=== PATIENT | male | born 1970 | race Caucasian/White ===

== ENCOUNTER 2017-05-15 15:47 | Inpatient (IN) | payer MEDICARE, MEDICAID ==
[~2017-05-15] VITALS: Ht 175.3 cm; Wt 150.6 kg
[~2017-05-15 15:47] MED LIST: ACET250T3 PO; BRIM5DRO RIGHTEYE; CANA300T PO; GABA-531 PO; METF10002 PO; PRED5DRO7 RIGHTEYE
[2017-05-15] MEDS ORDERED: IPRATROPIUM/ALBUTEROL 0.5-3(2.5)MG/3ML NEB HHN ONE (17:30)
[2017-05-15 17:35] LABS: BASOPHILS % 0.9 % (0.0-2.0); EOSINOPHILS % 1.5 % (0.0-5.0); HEMATOCRIT. 42.6 % (42.0-52.0); HEMOGLOBIN. 14.6 g/dL (14.0-18.0); LYMPHOCYTES % 25.6 % (20.0-50.0); MEAN CORPUSCULAR HEMOGLOBIN 29.9 pg (28.0-32.0); MEAN CORPUSCULAR VOLUME 87.3 fL (80.0-94.0); MEAN PLATELET VOLUME 9.6 fl (7.4-10.4); MONOCYTES % 4.7 % (2.0-8.0); NEUTROPHILS % 67.3 % (40.0-76.0); PLATELET 303 x1000/uL (130-400); RED BLOOD CELL COUNT 4.88 mill/uL (4.7-6.1); RED CELL DISTRIBUTION WIDTH 13.4 % (11.6-14.6)
[2017-05-15 17:37] LABS: CHLORIDE 106 mEq/L (98-107)
[2017-05-15 17:42] LABS: CARBON DIOXIDE 23 mEq/L (21-32)
[2017-05-15 17:46] LABS: PARTIAL THROMBOPLASTIN TIME 26.5 sec (23.4-31.0); PROTHROMBIN TIME 10.1 sec (9.4-11.6)
[2017-05-15 17:49] LABS: TROPONIN I < 0.02 ng/mL (0.00-0.04)
[2017-05-15 20:00] VITALS: BP 148/95
[2017-05-15 22:10] VITALS: BP 143/94
[2017-05-15] MEDS ORDERED: ENOXAPARIN 40MG/0.4ML SYR SUBCUT SCH (23:00)
[2017-05-15] MEDS ORDERED: ACETAMINOPHEN 325MG TABLET PO PRN (23:00)
[2017-05-15] MEDS ORDERED: LACTULOSE 20G/30ML UDC PO PRN (23:00)
[2017-05-15] MEDS ORDERED: DEXTROSE 50% WATER 50ML SYRINGE IV PRN (23:00)
[2017-05-15] MEDS ORDERED: IPRATROPIUM/ALBUTEROL 0.5-3(2.5)MG/3ML NEB INH PRN (23:00)
[2017-05-15] MEDS ORDERED: HYDROCODONE/APAP 7.5/325MG 1 TAB TABLET PO PRN (23:10)
[2017-05-15] MEDS ORDERED: DIFL5DRO RIGHTEYE (23:48)
[2017-05-15] MEDS ORDERED: MULT-1146 PO (23:48)
[2017-05-15] MEDS ORDERED: CHOL100044 PO (23:48)
[2017-05-15] MEDS ORDERED: DORZ10DR7 RIGHTEYE (23:48)
[2017-05-15] MEDS ORDERED: HYPR10GE3 RIGHTEYE (23:48)
[2017-05-15] MEDS ORDERED: HYDR-522 PO (23:48)
[2017-05-15] MEDS ORDERED: LATA2.5D2 RIGHTEYE (23:48)
[2017-05-15] MEDS ORDERED: FENO160T9 PO (23:48)
[2017-05-15] MEDS ORDERED: BRIM15DR2 RIGHTEYE (23:48)
[2017-05-15] MEDS ORDERED: SODI15DR6 RIGHTEYE (23:48)
[2017-05-15] MEDS ORDERED: [UNRECOGNIZED DRUG - OTHER] SUBCUT (23:48)
[2017-05-16] VITALS (7 sets, daily range): BP systolic 118–142; BP diastolic 68–90
[2017-05-16] MEDS ORDERED: INSULIN DETEMIR UD 100 UNITS/ML SYR SUBCUT SCH
[2017-05-16] MEDS: POTASSIUM CHLORIDE 20MEQ TABLET SR PO SCH ×2 (00:02→08:22)
[2017-05-16] MEDS: FUROSEMIDE 40MG/4ML VIAL IVP SCH ×3 (00:02→11:52)
[2017-05-16] MEDS: INSULIN LISPRO 100 UNITS/ML SUBCUT SCH ×5 (00:04→22:15)
[2017-05-16] MEDS: SODIUM CHLORIDE 0.9% INJ 3ML FLUSH IVF SCH ×3 (05:58→20:59)
[2017-05-16] MEDS: BLOOD SUGAR DIAGNOSTIC STRIP TEST SCH ×4 (05:58→21:01)
[2017-05-16] MEDS ORDERED: INSULIN LISPRO 100 UNITS/ML SUBCUT SCH (08:10)
[2017-05-16] MEDS: SODIUM CHLORIDE 2% RIGHTEYE SCH ×3 (08:19→20:59)
[2017-05-16] MEDS: ACETAZOLAMIDE 250MG TABLET PO SCH ×2 (08:23→17:19)
[2017-05-16] MEDS: METFORMIN HCL 500MG TABLET PO SCH ×2 (08:23→17:19)
[2017-05-16] MEDS: ENOXAPARIN 40MG/0.4ML SYR SUBCUT SCH ×2 (08:23→20:59)
[2017-05-16] MEDS: GABAPENTIN 300MG CAPSULE PO SCH ×3 (08:28→17:19)
[2017-05-16] MEDS: DORZOLAMIDE 2% OPHTH 10 ML BOTTLE RIGHTEYE SCH ×2 (08:29→17:18)
[2017-05-16] MEDS: POLYVINYL ALCOHOL OPHTH DROPS 15ML RIGHTEYE SCH (08:29)
[2017-05-16] MEDS ORDERED: BRIMONIDINE 0.2% OPHTH DROPS 5ML RIGHTEYE SCH (09:00)
[2017-05-16] MEDS ORDERED: BRIMONIDINE TARTRATE RIGHTEYE SCH (09:00)
[2017-05-16] MEDS ORDERED: HYPROMELLOSE RIGHTEYE SCH (09:00)
[2017-05-16] MEDS ORDERED: PREDNISOLONE ACETATE 1% OPHTH DROPS 1ML RIGHTEYE SCH (09:00)
[2017-05-16] MEDS ORDERED: MEDICATION NOT ON FORMULARY EA (Difluprednate (Durezol) 1 DROP) RIGHTEYE SCH ×2 (09:00)
[2017-05-16] MEDS ORDERED: GABAPENTIN 300MG CAPSULE PO SCH (09:00)
[2017-05-16] MEDS ORDERED: MEDICATION NOT ON FORMULARY EA (Metformin Hcl 500 MG) PO SCH (09:00)
[2017-05-16] MEDS ORDERED: MEDICATION NOT ON FORMULARY EA (Brimonidine Tartrate (Alphagan P) 1 DROP) RIGHTEYE SCH (09:00)
[2017-05-16] MEDS ORDERED: PNEUMOCOCCAL 23-VAL P-SAC VAC 0.5 ML IM ONE (10:00)
[2017-05-16 10:57] LABS: BASOPHILS % 0.7 % (0.0-2.0); EOSINOPHILS % 1.4 % (0.0-5.0); HEMATOCRIT. 43.6 % (42.0-52.0); HEMOGLOBIN. 14.5 g/dL (14.0-18.0); LYMPHOCYTES % 21.3 % (20.0-50.0); MEAN CORPUSCULAR HEMOGLOBIN 29.2 pg (28.0-32.0); MEAN CORPUSCULAR VOLUME 87.6 fL (80.0-94.0); MONOCYTES % 5.2 % (2.0-8.0); NEUTROPHILS % 71.4 % (40.0-76.0); PLATELET 302 x1000/uL (130-400); RED BLOOD CELL COUNT 4.98 mill/uL (4.7-6.1); RED CELL DISTRIBUTION WIDTH 13.5 % (11.6-14.6)
[2017-05-16 11:20] LABS: CARBON DIOXIDE 27 mEq/L (21-32); CHLORIDE 102 mEq/L (98-107)
[2017-05-16] MEDS: INSULIN DETEMIR UD 100 UNITS/ML SYR SUBCUT SCH ×2 (11:48→22:15)
[2017-05-16] MEDS: BRIMONIDINE 0.2% OPHTH DROPS 5ML RIGHTEYE SCH ×2 (12:52→17:18)
[2017-05-16] MEDS: LATANOPROST 0.005% OPHTH DROPS 2.5ML RIGHTEYE SCH (17:00)
[2017-05-16] MEDS: LISINOPRIL 10MG TABLET PO SCH (20:58)
[2017-05-17] VITALS: BP 112/70
[2017-05-17 01:42] LABS: CLARITY URINE CLOUDY (CLEAR); COLOR URINE YELLOW (YELLOW); GLUCOSE URINE 2+ (NEGATIVE); KETONES URINE NEGATIVE (NEGATIVE); LEUKOCYTE ESTERASE URINE NEGATIVE (NEGATIVE); NITRITE URINE NEGATIVE (NEGATIVE); OCCULT BLOOD URINE NEGATIVE (NEGATIVE); PH URINE 7.5 (4.5-8.0); PROTEIN URINE NEGATIVE (NEGATIVE); SPECIFIC GRAVITY URINE 1.015 (1.005-1.030); UROBILINOGEN URINE 0.2 E.U./dL (0.2-1.0)
[2017-05-17 01:52] LABS: *AMPHETAMINES SCREEN URINE NEGATIVE (NEGATIVE); *BARBITURATES SCREEN URINE NEGATIVE (NEGATIVE); *BENZODIAZEPINES SCREEN URINE NEGATIVE (NEGATIVE); *COCAINE SCREEN URINE NEGATIVE (NEGATIVE); CANNABINOID URINE SCREEN NEGATIVE (NEGATIVE); METHADONE URINE SCREEN NEGATIVE (NEGATIVE); OPIATES URINE SCREEN NEGATIVE (NEGATIVE); PHENCYCLIDINE URINE SCREEN NEGATIVE (NEGATIVE)
[2017-05-17 04:00] VITALS: BP 112/61
[2017-05-17] MEDS: BLOOD SUGAR DIAGNOSTIC STRIP TEST SCH ×4 (06:02→21:23)
[2017-05-17] MEDS: SODIUM CHLORIDE 2% RIGHTEYE SCH ×3 (06:02→21:22)
[2017-05-17] MEDS: SODIUM CHLORIDE 0.9% INJ 3ML FLUSH IVF SCH ×3 (06:02→21:22)
[2017-05-17 06:50] LABS: BASOPHILS % 0.7 % (0.0-2.0); EOSINOPHILS % 1.7 % (0.0-5.0); HEMATOCRIT. 44.4 % (42.0-52.0); HEMOGLOBIN. 14.9 g/dL (14.0-18.0); LYMPHOCYTES % 20.6 % (20.0-50.0); MEAN CORPUSCULAR HEMOGLOBIN 29.3 pg (28.0-32.0); MEAN CORPUSCULAR VOLUME 87.6 fL (80.0-94.0); MEAN PLATELET VOLUME 9.3 fl (7.4-10.4); MONOCYTES % 6.2 % (2.0-8.0); NEUTROPHILS % 70.8 % (40.0-76.0); PLATELET 330 x1000/uL (130-400); RED BLOOD CELL COUNT 5.07 mill/uL (4.7-6.1); RED CELL DISTRIBUTION WIDTH 13.4 % (11.6-14.6)
[2017-05-17 08:00] VITALS: BP 124/75
[2017-05-17 08:15] LABS: CARBON DIOXIDE 27 mEq/L (21-32); CHLORIDE 102 mEq/L (98-107); HDL CHOLESTEROL 23 mg/dL (40-59); LDL CHOLESTEROL 101 mg/dL (5-100)
[2017-05-17] MEDS: FUROSEMIDE 40MG/4ML VIAL IVP SCH (08:30)
[2017-05-17] MEDS: GABAPENTIN 300MG CAPSULE PO SCH ×3 (08:31→17:53)
[2017-05-17] MEDS: LISINOPRIL 10MG TABLET PO SCH ×2 (08:31→21:00)
[2017-05-17] MEDS: METFORMIN HCL 500MG TABLET PO SCH ×2 (08:31→17:53)
[2017-05-17] MEDS: ACETAZOLAMIDE 250MG TABLET PO SCH ×2 (08:32→17:54)
[2017-05-17] MEDS: INSULIN LISPRO 100 UNITS/ML SUBCUT SCH ×4 (08:33→21:34)
[2017-05-17] MEDS: ENOXAPARIN 40MG/0.4ML SYR SUBCUT SCH ×2 (08:34→21:24)
[2017-05-17] MEDS: POLYVINYL ALCOHOL OPHTH DROPS 15ML RIGHTEYE SCH (08:41)
[2017-05-17] MEDS: BRIMONIDINE 0.2% OPHTH DROPS 5ML RIGHTEYE SCH ×2 (08:42→17:00)
[2017-05-17] MEDS: DORZOLAMIDE 2% OPHTH 10 ML BOTTLE RIGHTEYE SCH ×2 (08:42→17:58)
[2017-05-17] MEDS ORDERED: POTASSIUM CHLORIDE 20MEQ TABLET SR PO SCH (09:00)
[2017-05-17] MEDS ORDERED: POTASSIUM CHLORIDE 20MEQ TABLET SR PO NR (10:30)
[2017-05-17] MEDS: INSULIN DETEMIR UD 100 UNITS/ML SYR SUBCUT SCH ×2 (11:24→22:12)
[2017-05-17 12:00] VITALS: BP 158/80
[2017-05-17 16:00] VITALS: BP 117/74
[2017-05-17] MEDS ORDERED: FUROSEMIDE 40MG/4ML VIAL IVP SCH (17:00)
[2017-05-17] MEDS: POTASSIUM CHLORIDE 20MEQ TABLET SR PO SCH (17:54)
[2017-05-17] MEDS: LATANOPROST 0.005% OPHTH DROPS 2.5ML RIGHTEYE SCH (17:58)
[2017-05-17 20:00] VITALS: BP 103/79
[2017-05-17] MEDS: ATORVASTATIN CALCIUM 20MG TABLET PO SCH (21:22)
[2017-05-18] VITALS: BP 124/78
[2017-05-18 04:00] VITALS: BP 97/63
[2017-05-18] MEDS: SODIUM CHLORIDE 0.9% INJ 3ML FLUSH IVF SCH ×3 (05:35→20:48)
[2017-05-18] MEDS: SODIUM CHLORIDE 2% RIGHTEYE SCH ×3 (05:35→20:51)
[2017-05-18] MEDS: BLOOD SUGAR DIAGNOSTIC STRIP TEST SCH ×4 (06:51→20:39)
[2017-05-18 08:00] VITALS: BP 105/61
[2017-05-18] MEDS: METFORMIN HCL 500MG TABLET PO SCH ×2 (08:45→17:42)
[2017-05-18] MEDS: POTASSIUM CHLORIDE 20MEQ TABLET SR PO SCH ×2 (08:45→17:43)
[2017-05-18] MEDS: ENOXAPARIN 40MG/0.4ML SYR SUBCUT SCH ×2 (08:46→20:47)
[2017-05-18] MEDS: BRIMONIDINE 0.2% OPHTH DROPS 5ML RIGHTEYE SCH ×2 (08:47→17:43)
[2017-05-18] MEDS: POLYVINYL ALCOHOL OPHTH DROPS 15ML RIGHTEYE SCH (08:47)
[2017-05-18] MEDS: DORZOLAMIDE 2% OPHTH 10 ML BOTTLE RIGHTEYE SCH ×2 (08:47→17:43)
[2017-05-18 08:53] LABS: CARBON DIOXIDE 25 mEq/L (21-32); CHLORIDE 104 mEq/L (98-107); TROPONIN I < 0.02 ng/mL (0.00-0.04)
[2017-05-18] MEDS: GABAPENTIN 300MG CAPSULE PO SCH ×3 (08:54→17:48)
[2017-05-18] MEDS: ACETAZOLAMIDE 250MG TABLET PO SCH ×2 (08:54→17:43)
[2017-05-18] MEDS: INSULIN LISPRO 100 UNITS/ML SUBCUT SCH ×4 (08:55→20:48)
[2017-05-18] MEDS: INSULIN DETEMIR UD 100 UNITS/ML SYR SUBCUT SCH ×2 (10:23→21:23)
[2017-05-18] MEDS: LISINOPRIL 10MG TABLET PO SCH ×2 (11:10→20:39)
[2017-05-18] MEDS: FUROSEMIDE 40MG TABLET PO SCH ×2 (11:10→20:48)
[2017-05-18 12:00] VITALS: BP 122/70
[2017-05-18 16:00] VITALS: BP 102/55
[2017-05-18] MEDS: LATANOPROST 0.005% OPHTH DROPS 2.5ML RIGHTEYE SCH (17:43)
[2017-05-18 20:00] VITALS: BP 106/72
[2017-05-18] MEDS: ATORVASTATIN CALCIUM 20MG TABLET PO SCH (20:48)
[2017-05-19] VITALS: BP 109/68
[2017-05-19 04:00] VITALS: BP 104/64
[2017-05-19] MEDS: SODIUM CHLORIDE 0.9% INJ 3ML FLUSH IVF SCH (05:52)
[2017-05-19] MEDS: FUROSEMIDE 40MG TABLET PO SCH (05:53)
[2017-05-19] MEDS: BLOOD SUGAR DIAGNOSTIC STRIP TEST SCH ×2 (05:53→12:00)
[2017-05-19] MEDS: SODIUM CHLORIDE 2% RIGHTEYE SCH (05:53)
[2017-05-19 06:36] LABS: BASOPHILS % 0.8 % (0.0-2.0); EOSINOPHILS % 1.8 % (0.0-5.0); HEMATOCRIT. 42.4 % (42.0-52.0); HEMOGLOBIN. 14.1 g/dL (14.0-18.0); LYMPHOCYTES % 27.2 % (20.0-50.0); MEAN CORPUSCULAR HEMOGLOBIN 29.5 pg (28.0-32.0); MEAN CORPUSCULAR VOLUME 88.5 fL (80.0-94.0); MEAN PLATELET VOLUME 9.2 fl (7.4-10.4); MONOCYTES % 5.8 % (2.0-8.0); NEUTROPHILS % 64.4 % (40.0-76.0); PLATELET 290 x1000/uL (130-400); RED BLOOD CELL COUNT 4.79 mill/uL (4.7-6.1); RED CELL DISTRIBUTION WIDTH 13.6 % (11.6-14.6)
[2017-05-19 07:04] LABS: CARBON DIOXIDE 31 mEq/L (21-32); CHLORIDE 103 mEq/L (98-107)
[2017-05-19 08:00] VITALS: BP 112/64
[2017-05-19] MEDS: POLYVINYL ALCOHOL OPHTH DROPS 15ML RIGHTEYE SCH (08:08)
[2017-05-19] MEDS: DORZOLAMIDE 2% OPHTH 10 ML BOTTLE RIGHTEYE SCH (08:08)
[2017-05-19] MEDS: LISINOPRIL 10MG TABLET PO SCH (08:09)
[2017-05-19] MEDS: GABAPENTIN 300MG CAPSULE PO SCH (08:09)
[2017-05-19] MEDS: POTASSIUM CHLORIDE 20MEQ TABLET SR PO SCH (08:09)
[2017-05-19] MEDS: METFORMIN HCL 500MG TABLET PO SCH (08:09)
[2017-05-19] MEDS: ACETAZOLAMIDE 250MG TABLET PO SCH (08:10)
[2017-05-19] MEDS: ENOXAPARIN 40MG/0.4ML SYR SUBCUT SCH (08:10)
[2017-05-19] MEDS: INSULIN LISPRO 100 UNITS/ML SUBCUT SCH (08:11)
[2017-05-19] MEDS: BRIMONIDINE 0.2% OPHTH DROPS 5ML RIGHTEYE SCH (08:14)
[2017-05-19 10:31] VITALS: BP 109/67
[2017-05-19] MEDS: INSULIN DETEMIR UD 100 UNITS/ML SYR SUBCUT SCH (10:40)
[2017-05-19 12:00] VITALS: BP 111/60
[2017-05-19] MEDS ORDERED: ATORVASTATIN CALCIUM 20MG TABLET PO SCH (21:00)
== END 2017-05-19 12:34 | disposition home or self-care (01) | DRG 292 ==
LOC: ER 19:30 → 7WST 19:31 → EDBEDREQ 19:51 → ENRESERV 20:51 → ER 21:36 → 7WST 05-16 00:22
PROVIDERS: ADMIT Internal Medicine; ATTEND Internal Medicine
DX: I11.0 Hypertensive heart disease with heart failure (principal); Z68.42 Body mass index [BMI] 45.0-49.9, adult; E11.42 Type 2 diabetes mellitus with diabetic polyneuropathy; H33.20 Serous retinal detachment, unspecified eye; I50.33 Acute on chronic diastolic (congestive) heart failure; E11.65 Type 2 diabetes mellitus with hyperglycemia; E66.01 Morbid (severe) obesity due to excess calories; F32.9 Major depressive disorder, single episode, unspecified; H40.9 Unspecified glaucoma; M54.9 Dorsalgia, unspecified; G47.33 Obstructive sleep apnea (adult) (pediatric); E87.6 Hypokalemia; R00.1 Bradycardia, unspecified; D72.829 Elevated white blood cell count, unspecified; G89.29 Other chronic pain; J44.9 Chronic obstructive pulmonary disease, unspecified; M17.9 Osteoarthritis of knee, unspecified; Z79.4 Long term (current) use of insulin; Z79.899 Other long term (current) drug therapy; Z82.49 Family history of ischemic heart disease and other diseases of the circulatory system; Z83.3 Family history of diabetes mellitus; Z79.84 Long term (current) use of oral hypoglycemic drugs
CPT/HCPCS: 36415; 71010; 80048; 80053; 80061; 80305; 81001; 82962; 83036; 83605; 83690; 83735; 83880; 84443; 84484; 85025; 85379; 85610; 85730; 87040; 90732; 93005; 93306; 93970; 94640; 99285; J1650; J1815; J1940; J7620

== ENCOUNTER 2020-08-04 16:52 | Inpatient (IN) | payer MEDICARE, MEDICAID ==
[~2020-08-04] VITALS: Ht 167.6 cm; Wt 123.8 kg
[~2020-08-04 16:52] MED LIST changes: +BRIM15DR2 RIGHTEYE; -BRIM5DRO RIGHTEYE; +CHOL100044 PO; +DIFL5DRO RIGHTEYE; +DORZ10DR8 RIGHTEYE; +FENO160T9 PO; -GABA-531 PO; +GABA-532 PO; +HYDR-522 PO; +HYPR10GE3 RIGHTEYE; +LATA2.5D14 RIGHTEYE; +METF-416 PO; -METF10002 PO; +MULT-1146 PO; -PRED5DRO7 RIGHTEYE; +SODI15DR6 RIGHTEYE; +[UNRECOGNIZED DRUG - OTHER] SUBCUT
[2020-08-04] MEDS ORDERED: ACETAMINOPHEN 325MG TABLET PO STA (17:40)
[2020-08-04] MEDS ORDERED: DEXAMETHASONE 10 MG/ML VIAL IV ONE (17:45)
[2020-08-04] MEDS ORDERED: SODIUM CHLORIDE 0.9% 1000ML BAG (SEPSIS BOLUS) IV ONE (17:45)
[2020-08-04] MEDS ORDERED: CEFTRIAXONE 1 G PREMIX 50 ML IV ONE (17:45)
[2020-08-04] MEDS ORDERED: AZITHROMYCIN 500 MG in DEXT 5% WATER 250 ML IV ONE (17:45)
[2020-08-04 18:14] LABS: BASOPHILS % 0.2 % (0.0-2.0); HEMATOCRIT. 45.2 % (42.0-52.0); HEMOGLOBIN. 15.1 g/dL (14.0-18.0); LYMPHOCYTES % 9.4 % (20.0-50.0); MEAN CORPUSCULAR HEMOGLOBIN 29.3 pg (28.0-32.0); MEAN CORPUSCULAR VOLUME 87.9 fL (80.0-94.0); MEAN PLATELET VOLUME 8.3 fl (7.4-10.4); MONOCYTES % 8.4 % (2.0-8.0); PLATELET 288 x1000/uL (130-400); RED BLOOD CELL COUNT 5.15 mill/uL (4.7-6.1); RED CELL DISTRIBUTION WIDTH 13.3 % (11.6-14.6)
[2020-08-04 18:16] LABS: CHLORIDE 98 mEq/L (98-107)
[2020-08-04 18:25] LABS: CREATINE KINASE 315 IU/L (39-308)
[2020-08-04 18:49] LABS: D-DIMER 0.67 mg/L FEU (<0.50); INR 1.1; PROTHROMBIN TIME 11.2 sec (9.6-11.0)
[2020-08-04 18:53] LABS: FIBRINOGEN > 900 mg/dL (200-400)
[2020-08-04] MEDS ORDERED: ALBUTEROL 6.7GM HFA INHALER ORI PRN (20:15)
[2020-08-04] MEDS ORDERED: CLONIDINE 0.1MG TABLET PO PRN (20:15)
[2020-08-04] MEDS ORDERED: NITROGLYCERIN 0.4MG TABLET SL SL PRN (20:15)
[2020-08-04] MEDS ORDERED: ZOLPIDEM TARTRATE 5MG TABLET PO PRN (20:15)
[2020-08-04] MEDS ORDERED: ONDANSETRON HCL 4MG/2ML INJ IV PRN (20:15)
[2020-08-04] MEDS ORDERED: TRAMADOL 50MG TABLET PO PRN (20:15)
[2020-08-04] MEDS ORDERED: ENOXAPARIN 40MG/0.4ML SYR SUBCUT SCH (20:15)
[2020-08-04] MEDS ORDERED: MAGNESIUM/ALUMINUM HYDROXIDE/SIMETHICONE 30ML UDC PO PRN (20:15)
[2020-08-04] MEDS ORDERED: KETOROLAC 15MG/ML VIAL IV PRN (20:15)
[2020-08-04] MEDS: ENOXAPARIN 30MG/0.3ML SYR SUBCUT SCH (21:00)
[2020-08-04] MEDS: BLOOD SUGAR DIAGNOSTIC STRIP TEST SCH (21:00)
[2020-08-04] MEDS: FAMOTIDINE 20MG TABLET PO SCH (21:00)
[2020-08-04] MEDS: INSULIN LISPRO 100 UNITS/ML SUBCUT SCH (21:00)
[2020-08-04] MEDS: GUAIFENESIN/DM 600MG/30MG ER TAB 12HR PO SCH (21:00)
[2020-08-04] MEDS: ASCORBIC ACID 500 MG TABLET PO SCH (21:00)
[2020-08-04] MEDS: INSULIN GLARGINE UD 100 UNITS/ML SYR SUBCUT SCH (22:00)
[2020-08-04] MEDS: GABAPENTIN 300MG CAPSULE PO SCH (22:03)
[2020-08-04 23:28] LABS: CREATINE KINASE 296 IU/L (39-308)
[2020-08-04 23:29] LABS: CREATINE KINASE MB FRACTION 1.6 ng/mL (0.5-3.6)
[2020-08-05 04:59] LABS: CHLORIDE 106 mEq/L (98-107)
[2020-08-05 05:00] LABS: BASOPHILS % 0.1 % (0.0-2.0); HEMATOCRIT. 42.3 % (42.0-52.0); HEMOGLOBIN. 14.7 g/dL (14.0-18.0); LYMPHOCYTES % 15.5 % (20.0-50.0); MEAN CORPUSCULAR HEMOGLOBIN 30.1 pg (28.0-32.0); MEAN PLATELET VOLUME 8.4 fl (7.4-10.4); MONOCYTES % 7.8 % (2.0-8.0); NEUTROPHILS % 76.6 % (40.0-76.0); PLATELET 257 x1000/uL (130-400); RED BLOOD CELL COUNT 4.87 mill/uL (4.7-6.1); RED CELL DISTRIBUTION WIDTH 13.1 % (11.6-14.6)
[2020-08-05 05:08] LABS: PHOSPHORUS 3.1 mg/dL (2.5-4.9)
[2020-08-05 05:09] LABS: CREATINE KINASE 251 IU/L (39-308)
[2020-08-05] MEDS: GABAPENTIN 300MG CAPSULE PO SCH ×3 (05:57→22:00)
[2020-08-05] MEDS: BLOOD SUGAR DIAGNOSTIC STRIP TEST SCH ×4 (05:57→21:26)
[2020-08-05] MEDS: ALBUTEROL 6.7GM HFA INHALER ORI SCH ×3 (07:12→21:30)
[2020-08-05] MEDS: DEXAMETHASONE 10 MG/ML VIAL IV SCH (09:13)
[2020-08-05] MEDS: INSULIN LISPRO 100 UNITS/ML SUBCUT SCH ×7 (09:13→21:26)
[2020-08-05] MEDS: GUAIFENESIN/DM 600MG/30MG ER TAB 12HR PO SCH ×2 (09:14→21:43)
[2020-08-05] MEDS: ZINC SULFATE 220 MG ( 50 ) CAPSULE PO SCH (09:15)
[2020-08-05] MEDS: ASCORBIC ACID 500 MG TABLET PO SCH ×2 (09:15→21:44)
[2020-08-05] MEDS: FAMOTIDINE 20MG TABLET PO SCH ×2 (09:15→21:43)
[2020-08-05] MEDS: ENOXAPARIN 30MG/0.3ML SYR SUBCUT SCH ×2 (09:16→22:19)
[2020-08-05] MEDS: ASPIRIN 325MG EC TABLET PO SCH (09:32)
[2020-08-05 14:49] LABS: BG BASE EXCESS -0.3 mmol/L (-2.0-2.0); BG DEOXYHEMOGLOBIN 3.1 % (0.0-5.0); BG FRACTION INSPIRED OXYGEN 99.9; BG HCO3 ACT 23.1 mmol/L (22.0-26.0); BG METHEMOGLOBIN 0.2 % (0.0-1.5); BG OXYGEN SATURATION 96.9 % (92.0-98.5); BG OXYHEMOGLOBIN 96.7 % (94.0-97.0); BG PCO2 34.7 mmHg (35.0-45.0); BG PH 7.442 (7.350-7.450); BG PO2 87.6 mmHg (75.0-100.0); BG SAMPLE SITE LEFT RADIAL; BG TOTAL HEMOGLOBIN 16.3 g/dL (12.0-18.0); BG VENT MODE MASK - NRB
[2020-08-05] MEDS: INSULIN GLARGINE UD 100 UNITS/ML SYR SUBCUT SCH ×2 (16:00→22:14)
[2020-08-05] MEDS ORDERED: POLY15DR31 EACHEYE (16:39)
[2020-08-05] MEDS ORDERED: LATA2.5D14 RIGHTEYE (16:39)
[2020-08-05] MEDS ORDERED: BRIM5DRO6 EACHEYE (16:39)
[2020-08-05] MEDS ORDERED: TIMO5DRO32 RIGHTEYE (16:39)
[2020-08-05] MEDS ORDERED: SODI15DR4 EACHEYE (16:39)
[2020-08-05] MEDS ORDERED: POLY15DR31 RIGHTEYE (16:48)
[2020-08-05] MEDS ORDERED: CEFTRIAXONE 1 G PREMIX 50 ML IV SCH (18:00)
[2020-08-05] MEDS ORDERED: AZITHROMYCIN 500 MG in DEXT 5% WATER 250 ML IV SCH (21:00)
[2020-08-05 23:00] VITALS: BP 139/90
[2020-08-06] VITALS: BP 146/90
[2020-08-06] MEDS: ALBUTEROL 6.7GM HFA INHALER ORI SCH ×4 (01:27→23:55)
[2020-08-06 04:00] VITALS: BP 117/71
[2020-08-06 04:37] LABS: CLARITY URINE CLEAR (CLEAR); COLOR URINE YELLOW (YELLOW); KETONES URINE TRACE (NEGATIVE); LEUKOCYTE ESTERASE URINE NEGATIVE (NEGATIVE); NITRITE URINE NEGATIVE (NEGATIVE); OCCULT BLOOD URINE NEGATIVE (NEGATIVE); PROTEIN URINE 1+ (NEGATIVE); SPECIFIC GRAVITY URINE 1.036 (1.005-1.030)
[2020-08-06 04:50] LABS: *BENZODIAZEPINES SCREEN URINE NEGATIVE (NEGATIVE); *COCAINE SCREEN URINE NEGATIVE (NEGATIVE)
[2020-08-06 04:51] LABS: *AMPHETAMINES SCREEN URINE NEGATIVE (NEGATIVE); *BARBITURATES SCREEN URINE NEGATIVE (NEGATIVE); CANNABINOID URINE SCREEN NEGATIVE (NEGATIVE); METHADONE URINE SCREEN NEGATIVE (NEGATIVE); OPIATES URINE SCREEN NEGATIVE (NEGATIVE); PHENCYCLIDINE URINE SCREEN NEGATIVE (NEGATIVE)
[2020-08-06] MEDS: GABAPENTIN 300MG CAPSULE PO SCH ×3 (05:21→21:41)
[2020-08-06] MEDS: BLOOD SUGAR DIAGNOSTIC STRIP TEST SCH ×4 (05:52→21:42)
[2020-08-06 08:00] VITALS: BP 124/79
[2020-08-06] MEDS: DEXAMETHASONE 10 MG/ML VIAL IV SCH (09:38)
[2020-08-06] MEDS: FAMOTIDINE 20MG TABLET PO SCH ×2 (09:39→21:41)
[2020-08-06] MEDS: ASPIRIN 325MG EC TABLET PO SCH (09:39)
[2020-08-06] MEDS: GUAIFENESIN/DM 600MG/30MG ER TAB 12HR PO SCH ×2 (09:39→21:41)
[2020-08-06] MEDS: ASCORBIC ACID 500 MG TABLET PO SCH ×2 (09:39→21:41)
[2020-08-06] MEDS: ZINC SULFATE 220 MG ( 50 ) CAPSULE PO SCH (09:39)
[2020-08-06] MEDS: ENOXAPARIN 30MG/0.3ML SYR SUBCUT SCH (09:39)
[2020-08-06] MEDS: INSULIN LISPRO 100 UNITS/ML SUBCUT SCH ×7 (09:42→21:41)
[2020-08-06 12:00] VITALS: BP 132/85
[2020-08-06] MEDS: INSULIN GLARGINE UD 100 UNITS/ML SYR SUBCUT SCH ×2 (12:00→21:42)
[2020-08-06 14:07] LABS: HEMATOCRIT. 45.2 % (42.0-52.0); HEMOGLOBIN. 15.1 g/dL (14.0-18.0); MEAN CORPUSCULAR HEMOGLOBIN 29.1 pg (28.0-32.0); MEAN CORPUSCULAR VOLUME 86.8 fL (80.0-94.0); MEAN PLATELET VOLUME 8.4 fl (7.4-10.4); PLATELET 354 x1000/uL (130-400); RED CELL DISTRIBUTION WIDTH 13.2 % (11.6-14.6)
[2020-08-06 14:12] LABS: CHLORIDE 108 mEq/L (98-107)
[2020-08-06 14:42] LABS: PLATELET ESTIMATE NORMAL
[2020-08-06 16:00] VITALS: BP 139/85
[2020-08-06] MEDS: CEFTRIAXONE 1,000 MG in DEXTROSE 5% WATER 50 ML IV SCH (17:03)
[2020-08-06] MEDS ORDERED: CEFTRIAXONE 1,000 MG in DEXTROSE 5% WATER 50 ML IV SCH (18:00)
[2020-08-06] MEDS ORDERED: SODIUM CHLORIDE 2% RIGHTEYE SCH (19:15)
[2020-08-06] MEDS ORDERED: MEDICATION NOT ON FORMULARY EA (Difluprednate (Durezol) 1 DROP) RIGHTEYE SCH (19:15)
[2020-08-06 20:00] VITALS: BP 137/79
[2020-08-06] MEDS: POLYVINYL ALCOHOL OPHTH DROPS 15ML RIGHTEYE SCH ×2 (20:00→23:35)
[2020-08-06] MEDS: AZITHROMYCIN 500 MG in DEXT 5% WATER 250 ML IV SCH (20:43)
[2020-08-06] MEDS ORDERED: POLYVINYL ALCOHOL OPHTH DROPS 15ML RIGHTEYE SCH (21:00)
[2020-08-06] MEDS: ENOXAPARIN 40MG/0.4ML SYR SUBCUT SCH (21:41)
[2020-08-06] MEDS: LATANOPROST 0.005% OPHTH DROPS 2.5ML RIGHTEYE SCH (21:42)
[2020-08-06] MEDS: BRIMONIDINE 0.2% OPHTH DROPS 5ML RIGHTEYE SCH (21:42)
[2020-08-07] VITALS: BP 159/89
[2020-08-07 04:00] VITALS: BP 109/68
[2020-08-07] MEDS: ALBUTEROL 6.7GM HFA INHALER ORI SCH ×4 (04:29→21:00)
[2020-08-07] MEDS: POLYVINYL ALCOHOL OPHTH DROPS 15ML RIGHTEYE SCH ×5 (04:29→21:53)
[2020-08-07] MEDS: GABAPENTIN 300MG CAPSULE PO SCH ×3 (06:03→21:50)
[2020-08-07] MEDS: INSULIN LISPRO 100 UNITS/ML SUBCUT SCH ×7 (06:24→21:55)
[2020-08-07] MEDS: BLOOD SUGAR DIAGNOSTIC STRIP TEST SCH ×4 (06:25→21:49)
[2020-08-07 08:00] VITALS: BP 120/82
[2020-08-07] MEDS ORDERED: BRIMONIDINE 0.2% OPHTH DROPS 5ML RIGHTEYE SCH (09:00)
[2020-08-07] MEDS: GUAIFENESIN/DM 600MG/30MG ER TAB 12HR PO SCH ×2 (09:00→21:00)
[2020-08-07] MEDS: ZINC SULFATE 220 MG ( 50 ) CAPSULE PO SCH (09:45)
[2020-08-07] MEDS: ASCORBIC ACID 500 MG TABLET PO SCH ×2 (09:45→21:48)
[2020-08-07] MEDS: DEXAMETHASONE 10 MG/ML VIAL IV SCH (09:45)
[2020-08-07] MEDS: FAMOTIDINE 20MG TABLET PO SCH ×2 (09:45→21:48)
[2020-08-07] MEDS: ASPIRIN 325MG EC TABLET PO SCH (09:45)
[2020-08-07] MEDS: BRIMONIDINE 0.2% OPHTH DROPS 5ML RIGHTEYE SCH ×2 (09:46→18:00)
[2020-08-07] MEDS: TIMOLOL MALEATE 0.5% OPHTH DROPS 5ML RIGHTEYE SCH (09:47)
[2020-08-07] MEDS: INSULIN GLARGINE UD 100 UNITS/ML SYR SUBCUT SCH ×2 (09:50→21:56)
[2020-08-07 12:00] VITALS: BP 132/85
[2020-08-07] MEDS: ENOXAPARIN 40MG/0.4ML SYR SUBCUT SCH ×2 (12:38→21:48)
[2020-08-07 16:00] VITALS: BP 141/87
[2020-08-07] MEDS: CEFTRIAXONE 1,000 MG in DEXTROSE 5% WATER 50 ML IV SCH (17:58)
[2020-08-07 20:00] VITALS: BP 130/73
[2020-08-07] MEDS: AZITHROMYCIN 500 MG in DEXT 5% WATER 250 ML IV SCH (21:48)
[2020-08-07] MEDS: LATANOPROST 0.005% OPHTH DROPS 2.5ML RIGHTEYE SCH (21:52)
[2020-08-07] MEDS: GUAIFENESIN 200MG/10ML SUGAR FREE UDC PO PRN (21:57)
[2020-08-08] VITALS: BP 141/80
[2020-08-08 04:00] VITALS: BP 128/82
[2020-08-08] MEDS: ALBUTEROL 6.7GM HFA INHALER ORI SCH ×4 (05:49→22:53)
[2020-08-08] MEDS: POLYVINYL ALCOHOL OPHTH DROPS 15ML RIGHTEYE SCH ×6 (05:49→22:51)
[2020-08-08] MEDS: GABAPENTIN 300MG CAPSULE PO SCH ×3 (05:50→22:50)
[2020-08-08] MEDS: BLOOD SUGAR DIAGNOSTIC STRIP TEST SCH ×4 (05:50→21:00)
[2020-08-08] MEDS: INSULIN LISPRO 100 UNITS/ML SUBCUT SCH ×7 (06:40→21:00)
[2020-08-08 08:00] VITALS: BP 133/85
[2020-08-08] MEDS: GUAIFENESIN/DM 600MG/30MG ER TAB 12HR PO SCH ×2 (09:00→22:50)
[2020-08-08] MEDS: ASPIRIN 325MG EC TABLET PO SCH (10:00)
[2020-08-08] MEDS: ASCORBIC ACID 500 MG TABLET PO SCH ×2 (10:01→22:51)
[2020-08-08] MEDS: DEXAMETHASONE 10 MG/ML VIAL IV SCH (10:01)
[2020-08-08] MEDS: FAMOTIDINE 20MG TABLET PO SCH ×2 (10:01→22:50)
[2020-08-08] MEDS: ZINC SULFATE 220 MG ( 50 ) CAPSULE PO SCH (10:01)
[2020-08-08] MEDS: INSULIN GLARGINE UD 100 UNITS/ML SYR SUBCUT SCH ×2 (10:10→22:52)
[2020-08-08] MEDS: ENOXAPARIN 40MG/0.4ML SYR SUBCUT SCH ×2 (10:12→22:51)
[2020-08-08] MEDS: TIMOLOL MALEATE 0.5% OPHTH DROPS 5ML RIGHTEYE SCH (10:13)
[2020-08-08] MEDS: BRIMONIDINE 0.2% OPHTH DROPS 5ML RIGHTEYE SCH ×2 (10:14→18:09)
[2020-08-08 12:00] VITALS: BP 137/85
[2020-08-08 16:00] VITALS: BP 133/83
[2020-08-08] MEDS: CEFTRIAXONE 1,000 MG in DEXTROSE 5% WATER 50 ML IV SCH (18:09)
[2020-08-08 20:00] VITALS: BP 154/97
[2020-08-08] MEDS: AZITHROMYCIN 500 MG in DEXT 5% WATER 250 ML IV SCH (22:49)
[2020-08-08] MEDS: LATANOPROST 0.005% OPHTH DROPS 2.5ML RIGHTEYE SCH (22:51)
[2020-08-09 00:45] VITALS: BP 138/80
[2020-08-09] MEDS: POLYVINYL ALCOHOL OPHTH DROPS 15ML RIGHTEYE SCH ×7 (06:01→23:53)
[2020-08-09] MEDS: GABAPENTIN 300MG CAPSULE PO SCH ×3 (06:01→22:18)
[2020-08-09] MEDS: GUAIFENESIN 200MG/10ML SUGAR FREE UDC PO PRN (06:01)
[2020-08-09] MEDS: ALBUTEROL 6.7GM HFA INHALER ORI SCH ×4 (06:02→22:08)
[2020-08-09] MEDS: INSULIN LISPRO 100 UNITS/ML SUBCUT SCH ×7 (06:40→21:00)
[2020-08-09] MEDS: BLOOD SUGAR DIAGNOSTIC STRIP TEST SCH ×4 (06:40→21:00)
[2020-08-09 08:00] VITALS: BP 126/68
[2020-08-09] MEDS: BRIMONIDINE 0.2% OPHTH DROPS 5ML RIGHTEYE SCH ×2 (09:00→17:00)
[2020-08-09] MEDS: ZINC SULFATE 220 MG ( 50 ) CAPSULE PO SCH (09:00)
[2020-08-09] MEDS: TIMOLOL MALEATE 0.5% OPHTH DROPS 5ML RIGHTEYE SCH (09:00)
[2020-08-09] MEDS: GUAIFENESIN/DM 600MG/30MG ER TAB 12HR PO SCH ×2 (09:36→22:17)
[2020-08-09] MEDS: FAMOTIDINE 20MG TABLET PO SCH ×2 (09:36→22:17)
[2020-08-09] MEDS: DEXAMETHASONE 10 MG/ML VIAL IV SCH (09:36)
[2020-08-09] MEDS: ENOXAPARIN 40MG/0.4ML SYR SUBCUT SCH ×2 (09:37→22:18)
[2020-08-09] MEDS: ASPIRIN 325MG EC TABLET PO SCH (09:38)
[2020-08-09] MEDS: ASCORBIC ACID 500 MG TABLET PO SCH ×2 (09:38→22:17)
[2020-08-09] MEDS: INSULIN GLARGINE UD 100 UNITS/ML SYR SUBCUT SCH ×2 (09:40→22:00)
[2020-08-09 12:00] VITALS: BP 136/72
[2020-08-09 16:00] VITALS: BP 129/69
[2020-08-09] MEDS: CEFTRIAXONE 1,000 MG in DEXTROSE 5% WATER 50 ML IV SCH (18:56)
[2020-08-09 20:00] VITALS: BP 118/66
[2020-08-09] MEDS: AZITHROMYCIN 500 MG in DEXT 5% WATER 250 ML IV SCH (22:17)
[2020-08-09] MEDS: ACETAMINOPHEN 325MG TABLET PO PRN (22:20)
[2020-08-09] MEDS: LATANOPROST 0.005% OPHTH DROPS 2.5ML RIGHTEYE SCH (22:27)
[2020-08-10] VITALS (45 sets, daily range): BP systolic 78–147; BP diastolic 45–104
[2020-08-10] MEDS: ALBUTEROL 6.7GM HFA INHALER ORI SCH ×2 (03:18→09:00)
[2020-08-10] MEDS: POLYVINYL ALCOHOL OPHTH DROPS 15ML RIGHTEYE SCH ×4 (03:20→23:20)
[2020-08-10] MEDS: GABAPENTIN 300MG CAPSULE PO SCH ×3 (05:37→14:00)
[2020-08-10] MEDS: DEXTROSE 50% WATER 50ML SYRINGE IV PRN (06:08)
[2020-08-10] MEDS: INSULIN LISPRO 100 UNITS/ML SUBCUT SCH ×7 (06:40→21:59)
[2020-08-10] MEDS: BLOOD SUGAR DIAGNOSTIC STRIP TEST SCH ×4 (06:51→21:46)
[2020-08-10] MEDS: FAMOTIDINE 20MG TABLET PO SCH ×2 (09:20→21:58)
[2020-08-10] MEDS: GUAIFENESIN/DM 600MG/30MG ER TAB 12HR PO SCH ×2 (09:20→21:58)
[2020-08-10] MEDS: ENOXAPARIN 40MG/0.4ML SYR SUBCUT SCH ×2 (09:20→23:30)
[2020-08-10] MEDS: ASCORBIC ACID 500 MG TABLET PO SCH ×2 (09:20→23:30)
[2020-08-10] MEDS: ZINC SULFATE 220 MG ( 50 ) CAPSULE PO SCH (09:20)
[2020-08-10] MEDS: ASPIRIN 325MG EC TABLET PO SCH (09:23)
[2020-08-10] MEDS: DEXAMETHASONE 10 MG/ML VIAL IV SCH (09:24)
[2020-08-10] MEDS: BRIMONIDINE 0.2% OPHTH DROPS 5ML RIGHTEYE SCH ×2 (09:25→17:00)
[2020-08-10] MEDS: TIMOLOL MALEATE 0.5% OPHTH DROPS 5ML RIGHTEYE SCH (09:27)
[2020-08-10] MEDS: INSULIN GLARGINE UD 100 UNITS/ML SYR SUBCUT SCH ×2 (10:00→22:00)
[2020-08-10] MEDS: FENTANYL CITRATE/PF 2,500 MCG in SODIUM CHLORIDE 0.9% 200 ML IV PRN ×2 (11:50→19:56)
[2020-08-10] MEDS: MIDAZOLAM HCL 100 MG in DEXT 5% WATER 80 ML IV PRN ×2 (11:50→19:59)
[2020-08-10 12:36] LABS: BG BASE EXCESS -2.6 mmol/L (-2.0-2.0); BG CARBOXYHEMOGLOBIN 0.6 % (0.5-1.5); BG DEOXYHEMOGLOBIN 20.6 % (0.0-5.0); BG FRACTION INSPIRED OXYGEN 100; BG HCO3 ACT 25.1 mmol/L (22.0-26.0); BG METHEMOGLOBIN 0.4 % (0.0-1.5); BG OXYGEN SATURATION 79.2 % (92.0-98.5); BG OXYHEMOGLOBIN 78.4 % (94.0-97.0); BG PH 7.285 (7.350-7.450); BG PO2 47.9 mmHg (75.0-100.0); BG SAMPLE SITE RIGHT RADIAL; BG TOTAL HEMOGLOBIN 16.7 g/dL (12.0-18.0); BG TOTAL RESPIRATORY RATE 25 b/min; BG VENT MODE VENT - AC
[2020-08-10] MEDS: PHENYLEPHRINE 50 MG in DEXT 5% WATER 245 ML IV PRN ×2 (13:41→18:28)
[2020-08-10] MEDS ORDERED: IPRATROPIUM/ALBUTEROL 0.5-3(2.5)MG/3ML NEB HHN PRN (13:45)
[2020-08-10] MEDS ORDERED: NOREPINEPHRINE 8MG/250ML PMX 250 ML IV PRN (14:00)
[2020-08-10] MEDS ORDERED: NOREPINEPHRINE 8 MG in DEXTROSE 5% WATER 250 ML IV PRN (14:15)
[2020-08-10] MEDS: CEFTRIAXONE 1,000 MG in DEXTROSE 5% WATER 50 ML IV SCH (19:19)
[2020-08-10] MEDS: IPRATROPIUM/ALBUTEROL 0.5-3(2.5)MG/3ML NEB HHN SCH (21:33)
[2020-08-10] MEDS: GABAPENTIN SOLN 300MG/6ML UDC GT SCH (22:00)
[2020-08-10] MEDS: AZITHROMYCIN 500 MG in DEXT 5% WATER 250 ML IV SCH (23:19)
[2020-08-10] MEDS: LATANOPROST 0.005% OPHTH DROPS 2.5ML RIGHTEYE SCH (23:20)
[2020-08-11] VITALS (98 sets, daily range): BP systolic 63–181; BP diastolic 28–120
[2020-08-11] MEDS: IPRATROPIUM/ALBUTEROL 0.5-3(2.5)MG/3ML NEB HHN SCH ×6 (00:39→20:47)
[2020-08-11] MEDS: POLYVINYL ALCOHOL OPHTH DROPS 15ML RIGHTEYE SCH ×6 (00:49→22:03)
[2020-08-11] MEDS: PHENYLEPHRINE 50 MG in DEXT 5% WATER 245 ML IV PRN ×3 (01:04→14:52)
[2020-08-11 05:38] LABS: HEMATOCRIT. 47.2 % (42.0-52.0); HEMOGLOBIN. 15.4 g/dL (14.0-18.0); MEAN CORPUSCULAR HEMOGLOBIN 29.1 pg (28.0-32.0); MEAN CORPUSCULAR VOLUME 89.5 fL (80.0-94.0); MEAN PLATELET VOLUME 9.3 fl (7.4-10.4); PLATELET 552 x1000/uL (130-400); RED BLOOD CELL COUNT 5.27 mill/uL (4.7-6.1); RED CELL DISTRIBUTION WIDTH 13.7 % (11.6-14.6)
[2020-08-11] MEDS: BLOOD SUGAR DIAGNOSTIC STRIP TEST SCH ×4 (05:38→21:00)
[2020-08-11] MEDS: GABAPENTIN SOLN 300MG/6ML UDC GT SCH ×3 (05:43→22:01)
[2020-08-11] MEDS: INSULIN LISPRO 100 UNITS/ML SUBCUT SCH ×7 (05:45→22:16)
[2020-08-11 05:47] LABS: CHLORIDE 104 mEq/L (98-107)
[2020-08-11 05:56] LABS: PHOSPHORUS 4.4 mg/dL (2.5-4.9)
[2020-08-11] MEDS: FENTANYL CITRATE/PF 2,500 MCG in SODIUM CHLORIDE 0.9% 200 ML IV PRN ×2 (06:52→16:46)
[2020-08-11] MEDS: MIDAZOLAM HCL 100 MG in DEXT 5% WATER 80 ML IV PRN ×2 (06:58→16:47)
[2020-08-11 08:54] LABS: PLATELET ESTIMATE INCREASED
[2020-08-11 09:41] LABS: BG CARBOXYHEMOGLOBIN 0.1 % (0.5-1.5); BG DEOXYHEMOGLOBIN 0.8 % (0.0-5.0); BG FRACTION INSPIRED OXYGEN 100; BG HCO3 ACT 27.1 mmol/L (22.0-26.0); BG METHEMOGLOBIN 0.7 % (0.0-1.5); BG OXYGEN SATURATION 99.2 % (92.0-98.5); BG OXYHEMOGLOBIN 98.4 % (94.0-97.0); BG PCO2 58.1 mmHg (35.0-45.0); BG PH 7.286 (7.350-7.450); BG PO2 239.2 mmHg (75.0-100.0); BG SAMPLE SITE RIGHT RADIAL; BG TOTAL HEMOGLOBIN 16.9 g/dL (12.0-18.0); BG TOTAL RESPIRATORY RATE 22 b/min; BG VENT MODE VENT - AC
[2020-08-11] MEDS: DEXAMETHASONE 10 MG/ML VIAL IV SCH (10:51)
[2020-08-11] MEDS: ZINC SULFATE 220 MG ( 50 ) CAPSULE PO SCH (10:51)
[2020-08-11] MEDS: ASCORBIC ACID 500 MG TABLET PO SCH ×2 (10:51→22:01)
[2020-08-11] MEDS: GUAIFENESIN/DM 600MG/30MG ER TAB 12HR PO SCH ×2 (10:51→21:00)
[2020-08-11] MEDS: FAMOTIDINE 20MG TABLET PO SCH ×2 (10:51→22:01)
[2020-08-11] MEDS: ENOXAPARIN 40MG/0.4ML SYR SUBCUT SCH ×2 (10:52→22:02)
[2020-08-11] MEDS: BRIMONIDINE 0.2% OPHTH DROPS 5ML RIGHTEYE SCH ×2 (10:54→18:59)
[2020-08-11] MEDS: TIMOLOL MALEATE 0.5% OPHTH DROPS 5ML RIGHTEYE SCH (10:54)
[2020-08-11] MEDS: INSULIN GLARGINE UD 100 UNITS/ML SYR SUBCUT SCH ×2 (13:38→22:10)
[2020-08-11] MEDS: PIPERACILLIN/TAZOBACTAM 3.375 G in DEXT 5% WATER 100 ML IV SCH ×2 (16:16→22:01)
[2020-08-11] MEDS: ASPIRIN 325MG TABLET GT SCH (17:34)
[2020-08-11] MEDS: PHENYLEPHRINE 100 MG in DEXT 5% WATER 240 ML IV PRN (18:58)
[2020-08-11] MEDS: LATANOPROST 0.005% OPHTH DROPS 2.5ML RIGHTEYE SCH (22:02)
[2020-08-12] VITALS (72 sets, daily range): BP systolic 88–135; BP diastolic 53–84
[2020-08-12] MEDS: IPRATROPIUM/ALBUTEROL 0.5-3(2.5)MG/3ML NEB HHN SCH ×5 (00:37→16:50)
[2020-08-12] MEDS: ACETAMINOPHEN 325MG TABLET PO PRN ×2 (00:58→14:06)
[2020-08-12] MEDS: POLYVINYL ALCOHOL OPHTH DROPS 15ML RIGHTEYE SCH ×6 (01:00→20:01)
[2020-08-12] MEDS: PIPERACILLIN/TAZOBACTAM 3.375 G in DEXT 5% WATER 100 ML IV SCH ×4 (02:56→20:31)
[2020-08-12] MEDS: PHENYLEPHRINE 100 MG in DEXT 5% WATER 240 ML IV PRN ×2 (02:57→16:00)
[2020-08-12] MEDS: MIDAZOLAM HCL 100 MG in DEXT 5% WATER 80 ML IV PRN ×2 (02:57→13:27)
[2020-08-12] MEDS: FENTANYL CITRATE/PF 2,500 MCG in SODIUM CHLORIDE 0.9% 200 ML IV PRN ×2 (02:58→13:28)
[2020-08-12] MEDS: GABAPENTIN SOLN 300MG/6ML UDC GT SCH ×3 (06:19→20:30)
[2020-08-12] MEDS: BLOOD SUGAR DIAGNOSTIC STRIP TEST SCH ×4 (06:20→20:49)
[2020-08-12] MEDS: INSULIN LISPRO 100 UNITS/ML SUBCUT SCH ×7 (06:20→20:48)
[2020-08-12 08:45] LABS: HEMATOCRIT. 44.4 % (42.0-52.0); HEMOGLOBIN. 14.5 g/dL (14.0-18.0); MEAN CORPUSCULAR HEMOGLOBIN 29.2 pg (28.0-32.0); MEAN CORPUSCULAR VOLUME 89.5 fL (80.0-94.0); MEAN PLATELET VOLUME 8.9 fl (7.4-10.4); PLATELET 468 x1000/uL (130-400); RED BLOOD CELL COUNT 4.96 mill/uL (4.7-6.1); RED CELL DISTRIBUTION WIDTH 14.1 % (11.6-14.6)
[2020-08-12 08:48] LABS: CHLORIDE 107 mEq/L (98-107)
[2020-08-12] MEDS: DEXAMETHASONE 10 MG/ML VIAL IV SCH (09:10)
[2020-08-12] MEDS: ASPIRIN 325MG TABLET GT SCH (09:10)
[2020-08-12] MEDS: GUAIFENESIN/DM 600MG/30MG ER TAB 12HR PO SCH ×2 (09:10→20:30)
[2020-08-12] MEDS: ASCORBIC ACID 500 MG TABLET PO SCH ×2 (09:10→20:30)
[2020-08-12] MEDS: ENOXAPARIN 40MG/0.4ML SYR SUBCUT SCH ×2 (09:10→20:30)
[2020-08-12] MEDS: ZINC SULFATE 220 MG ( 50 ) CAPSULE PO SCH (09:10)
[2020-08-12] MEDS: TIMOLOL MALEATE 0.5% OPHTH DROPS 5ML RIGHTEYE SCH (09:13)
[2020-08-12] MEDS: BRIMONIDINE 0.2% OPHTH DROPS 5ML RIGHTEYE SCH ×2 (09:13→17:25)
[2020-08-12] MEDS: FAMOTIDINE 20MG TABLET PO SCH ×2 (09:15→20:30)
[2020-08-12] MEDS: INSULIN GLARGINE UD 100 UNITS/ML SYR SUBCUT SCH ×2 (09:18→20:49)
[2020-08-12 11:30] LABS: BG BASE EXCESS -1.3 mmol/L (-2.0-2.0); BG CARBOXYHEMOGLOBIN 0.2 % (0.5-1.5); BG DEOXYHEMOGLOBIN 0.7 % (0.0-5.0); BG FRACTION INSPIRED OXYGEN 100; BG METHEMOGLOBIN 0.5 % (0.0-1.5); BG OXYGEN SATURATION 99.3 % (92.0-98.5); BG OXYHEMOGLOBIN 98.6 % (94.0-97.0); BG PCO2 42.3 mmHg (35.0-45.0); BG PH 7.372 (7.350-7.450); BG PO2 202.1 mmHg (75.0-100.0); BG SAMPLE SITE LEFT RADIAL; BG TOTAL HEMOGLOBIN 14.9 g/dL (12.0-18.0); BG TOTAL RESPIRATORY RATE 26 b/min; BG VENT MODE PRVC
[2020-08-12 15:29] LABS: PLATELET ESTIMATE INCREASED
[2020-08-12] MEDS: LATANOPROST 0.005% OPHTH DROPS 2.5ML RIGHTEYE SCH (20:30)
[2020-08-13] VITALS (89 sets, daily range): BP systolic 96–156; BP diastolic 54–111
[2020-08-13] MEDS: POLYVINYL ALCOHOL OPHTH DROPS 15ML RIGHTEYE SCH ×7 (00:35→23:51)
[2020-08-13] MEDS: FENTANYL CITRATE/PF 2,500 MCG in SODIUM CHLORIDE 0.9% 200 ML IV PRN ×3 (00:38→23:55)
[2020-08-13] MEDS: MIDAZOLAM HCL 100 MG in DEXT 5% WATER 80 ML IV PRN ×2 (01:11→10:52)
[2020-08-13] MEDS: PIPERACILLIN/TAZOBACTAM 3.375 G in DEXT 5% WATER 100 ML IV SCH ×4 (03:12→21:34)
[2020-08-13] MEDS: IPRATROPIUM/ALBUTEROL 0.5-3(2.5)MG/3ML NEB HHN SCH ×5 (03:56→20:24)
[2020-08-13] MEDS: ACETAMINOPHEN 325MG TABLET PO PRN (04:54)
[2020-08-13] MEDS: GABAPENTIN SOLN 300MG/6ML UDC GT SCH ×3 (04:54→21:34)
[2020-08-13] MEDS: INSULIN LISPRO 100 UNITS/ML SUBCUT SCH ×7 (06:47→21:36)
[2020-08-13] MEDS: BLOOD SUGAR DIAGNOSTIC STRIP TEST SCH ×4 (06:59→21:36)
[2020-08-13] MEDS: ASCORBIC ACID 500 MG TABLET PO SCH ×2 (08:43→21:35)
[2020-08-13] MEDS: GUAIFENESIN/DM 600MG/30MG ER TAB 12HR PO SCH ×2 (08:43→21:35)
[2020-08-13] MEDS: DEXAMETHASONE 10 MG/ML VIAL IV SCH (08:43)
[2020-08-13] MEDS: ZINC SULFATE 220 MG ( 50 ) CAPSULE PO SCH (08:43)
[2020-08-13] MEDS: ENOXAPARIN 40MG/0.4ML SYR SUBCUT SCH ×2 (08:43→21:36)
[2020-08-13] MEDS: ASPIRIN 325MG TABLET GT SCH (08:43)
[2020-08-13] MEDS: FAMOTIDINE 20MG TABLET PO SCH ×2 (08:43→21:34)
[2020-08-13] MEDS: BRIMONIDINE 0.2% OPHTH DROPS 5ML RIGHTEYE SCH ×2 (08:45→16:37)
[2020-08-13] MEDS: TIMOLOL MALEATE 0.5% OPHTH DROPS 5ML RIGHTEYE SCH (08:45)
[2020-08-13 08:57] LABS: BG BASE EXCESS 0.9 mmol/L (-2.0-2.0); BG CARBOXYHEMOGLOBIN 0.3 % (0.5-1.5); BG DEOXYHEMOGLOBIN 1.1 % (0.0-5.0); BG FRACTION INSPIRED OXYGEN 80; BG HCO3 ACT 26.6 mmol/L (22.0-26.0); BG METHEMOGLOBIN 0.3 % (0.0-1.5); BG OXYGEN SATURATION 98.9 % (92.0-98.5); BG OXYHEMOGLOBIN 98.3 % (94.0-97.0); BG PCO2 46.5 mmHg (35.0-45.0); BG PH 7.376 (7.350-7.450); BG SAMPLE SITE LEFT RADIAL; BG TOTAL HEMOGLOBIN 15.3 g/dL (12.0-18.0); BG VENT MODE PRVC
[2020-08-13] MEDS: INSULIN GLARGINE UD 100 UNITS/ML SYR SUBCUT SCH ×2 (09:30→21:37)
[2020-08-13 09:47] LABS: HEMATOCRIT. 41.7 % (42.0-52.0); HEMOGLOBIN. 13.6 g/dL (14.0-18.0); MEAN CORPUSCULAR HEMOGLOBIN 28.6 pg (28.0-32.0); MEAN PLATELET VOLUME 8.8 fl (7.4-10.4); PLATELET 433 x1000/uL (130-400); RED BLOOD CELL COUNT 4.74 mill/uL (4.7-6.1); RED CELL DISTRIBUTION WIDTH 13.9 % (11.6-14.6)
[2020-08-13 10:40] LABS: PLATELET ESTIMATE INCREASED
[2020-08-13] MEDS ORDERED: METOCLOPRAMIDE HCL 10MG TABLET PO SCH (12:00)
[2020-08-13] MEDS: METOCLOPRAMIDE HCL 10MG/2ML VIAL IV SCH ×2 (18:31→23:58)
[2020-08-13] MEDS: LATANOPROST 0.005% OPHTH DROPS 2.5ML RIGHTEYE SCH (21:37)
[2020-08-14] VITALS (95 sets, daily range): BP systolic 99–134; BP diastolic 36–89
[2020-08-14] MEDS: IPRATROPIUM/ALBUTEROL 0.5-3(2.5)MG/3ML NEB HHN SCH ×6 (00:36→20:36)
[2020-08-14] MEDS: PIPERACILLIN/TAZOBACTAM 3.375 G in DEXT 5% WATER 100 ML IV SCH ×4 (03:27→21:15)
[2020-08-14] MEDS: POLYVINYL ALCOHOL OPHTH DROPS 15ML RIGHTEYE SCH ×6 (03:27→23:36)
[2020-08-14 05:40] LABS: HEMATOCRIT. 41.1 % (42.0-52.0); HEMOGLOBIN. 13.6 g/dL (14.0-18.0); MEAN CORPUSCULAR HEMOGLOBIN 29.2 pg (28.0-32.0); MEAN CORPUSCULAR VOLUME 88.5 fL (80.0-94.0); MEAN PLATELET VOLUME 9.8 fl (7.4-10.4); PLATELET 382 x1000/uL (130-400); RED BLOOD CELL COUNT 4.65 mill/uL (4.7-6.1); RED CELL DISTRIBUTION WIDTH 13.8 % (11.6-14.6)
[2020-08-14] MEDS: BLOOD SUGAR DIAGNOSTIC STRIP TEST SCH ×4 (05:50→21:42)
[2020-08-14] MEDS: GABAPENTIN SOLN 300MG/6ML UDC GT SCH ×3 (06:14→22:12)
[2020-08-14] MEDS: METOCLOPRAMIDE HCL 10MG/2ML VIAL IV SCH ×4 (06:14→23:36)
[2020-08-14] MEDS: INSULIN LISPRO 100 UNITS/ML SUBCUT SCH ×7 (06:15→21:57)
[2020-08-14] MEDS: DOCUSATE SODIUM 100MG CAPSULE PO PRN (08:20)
[2020-08-14] MEDS: FAMOTIDINE 20MG TABLET PO SCH ×2 (08:20→21:16)
[2020-08-14] MEDS: ASPIRIN 325MG TABLET GT SCH (08:20)
[2020-08-14] MEDS: DEXAMETHASONE 10 MG/ML VIAL IV SCH (08:20)
[2020-08-14] MEDS: ASCORBIC ACID 500 MG TABLET PO SCH ×2 (08:20→21:16)
[2020-08-14] MEDS: ZINC SULFATE 220 MG ( 50 ) CAPSULE PO SCH (08:20)
[2020-08-14] MEDS: TIMOLOL MALEATE 0.5% OPHTH DROPS 5ML RIGHTEYE SCH (08:21)
[2020-08-14] MEDS: BRIMONIDINE 0.2% OPHTH DROPS 5ML RIGHTEYE SCH ×2 (08:21→16:19)
[2020-08-14] MEDS: GUAIFENESIN/DM 600MG/30MG ER TAB 12HR PO SCH ×2 (08:21→21:15)
[2020-08-14] MEDS: ENOXAPARIN 40MG/0.4ML SYR SUBCUT SCH ×2 (08:22→21:23)
[2020-08-14] MEDS: INSULIN GLARGINE UD 100 UNITS/ML SYR SUBCUT SCH ×2 (09:15→22:01)
[2020-08-14 09:45] LABS: BG BASE EXCESS -0.6 mmol/L (-2.0-2.0); BG CARBOXYHEMOGLOBIN 0.4 % (0.5-1.5); BG DEOXYHEMOGLOBIN 0.8 % (0.0-5.0); BG FRACTION INSPIRED OXYGEN 80; BG HCO3 ACT 25.2 mmol/L (22.0-26.0); BG METHEMOGLOBIN 0.2 % (0.0-1.5); BG OXYGEN SATURATION 99.2 % (92.0-98.5); BG OXYHEMOGLOBIN 98.6 % (94.0-97.0); BG PCO2 45.7 mmHg (35.0-45.0); BG PH 7.359 (7.350-7.450); BG PO2 195.3 mmHg (75.0-100.0); BG SAMPLE SITE RIGHT RADIAL; BG TOTAL HEMOGLOBIN 14.2 g/dL (12.0-18.0); BG TOTAL RESPIRATORY RATE 26 b/min; BG VENT MODE PRVC
[2020-08-14] MEDS: MIDAZOLAM HCL 100 MG in DEXT 5% WATER 80 ML IV PRN (10:47)
[2020-08-14 11:08] LABS: NUCLEATED RED BLOOD CELLS 1 /100 WBC; PLATELET ESTIMATE NORMAL
[2020-08-14] MEDS: FENTANYL CITRATE/PF 2,500 MCG in SODIUM CHLORIDE 0.9% 200 ML IV PRN (14:49)
[2020-08-14] MEDS: LACTULOSE 20G/30ML UDC PO PRN (19:15)
[2020-08-14] MEDS: LATANOPROST 0.005% OPHTH DROPS 2.5ML RIGHTEYE SCH (21:48)
[2020-08-15] VITALS (97 sets, daily range): BP systolic 106–146; BP diastolic 59–95
[2020-08-15] MEDS: IPRATROPIUM/ALBUTEROL 0.5-3(2.5)MG/3ML NEB HHN SCH ×6 (00:27→20:00)
[2020-08-15] MEDS: POLYVINYL ALCOHOL OPHTH DROPS 15ML RIGHTEYE SCH ×6 (03:26→23:35)
[2020-08-15] MEDS: PIPERACILLIN/TAZOBACTAM 3.375 G in DEXT 5% WATER 100 ML IV SCH ×4 (03:26→20:45)
[2020-08-15] MEDS: PHENYLEPHRINE 100 MG in DEXT 5% WATER 240 ML IV PRN (04:58)
[2020-08-15] MEDS: METOCLOPRAMIDE HCL 10MG/2ML VIAL IV SCH ×4 (05:36→23:34)
[2020-08-15] MEDS: BLOOD SUGAR DIAGNOSTIC STRIP TEST SCH ×4 (05:48→21:30)
[2020-08-15 05:49] LABS: CHLORIDE 106 mEq/L (98-107)
[2020-08-15 05:54] LABS: PHOSPHORUS 3.2 mg/dL (2.5-4.9)
[2020-08-15 05:55] LABS: HEMATOCRIT. 41.3 % (42.0-52.0); HEMOGLOBIN. 13.3 g/dL (14.0-18.0); MEAN CORPUSCULAR HEMOGLOBIN 28.5 pg (28.0-32.0); MEAN CORPUSCULAR VOLUME 88.6 fL (80.0-94.0); MEAN PLATELET VOLUME 9.9 fl (7.4-10.4); PLATELET 415 x1000/uL (130-400); RED BLOOD CELL COUNT 4.66 mill/uL (4.7-6.1); RED CELL DISTRIBUTION WIDTH 13.7 % (11.6-14.6)
[2020-08-15] MEDS: GABAPENTIN SOLN 300MG/6ML UDC GT SCH ×3 (06:29→22:05)
[2020-08-15] MEDS: INSULIN LISPRO 100 UNITS/ML SUBCUT SCH ×7 (06:33→21:40)
[2020-08-15 07:59] LABS: BG BASE EXCESS 1.5 mmol/L (-2.0-2.0); BG CARBOXYHEMOGLOBIN 0.2 % (0.5-1.5); BG DEOXYHEMOGLOBIN 1.8 % (0.0-5.0); BG HCO3 ACT 27.3 mmol/L (22.0-26.0); BG METHEMOGLOBIN 0.3 % (0.0-1.5); BG OXYGEN SATURATION 98.2 % (92.0-98.5); BG OXYHEMOGLOBIN 97.7 % (94.0-97.0); BG PCO2 47.6 mmHg (35.0-45.0); BG PH 7.377 (7.350-7.450); BG PO2 119.4 mmHg (75.0-100.0); BG SAMPLE SITE RIGHT RADIAL; BG VENT MODE VENT- PRVC
[2020-08-15] MEDS: BRIMONIDINE 0.2% OPHTH DROPS 5ML RIGHTEYE SCH ×2 (10:14→17:15)
[2020-08-15] MEDS: ASCORBIC ACID 500 MG TABLET PO SCH ×2 (10:14→21:30)
[2020-08-15] MEDS: ASPIRIN 325MG TABLET GT SCH (10:14)
[2020-08-15] MEDS: GUAIFENESIN/DM 600MG/30MG ER TAB 12HR PO SCH ×2 (10:15→21:29)
[2020-08-15] MEDS: ZINC SULFATE 220 MG ( 50 ) CAPSULE PO SCH (10:15)
[2020-08-15] MEDS: ENOXAPARIN 40MG/0.4ML SYR SUBCUT SCH ×2 (10:17→21:36)
[2020-08-15] MEDS: FAMOTIDINE 20MG TABLET PO SCH ×2 (10:17→21:29)
[2020-08-15] MEDS: TIMOLOL MALEATE 0.5% OPHTH DROPS 5ML RIGHTEYE SCH (10:17)
[2020-08-15] MEDS: FENTANYL CITRATE/PF 2,500 MCG in SODIUM CHLORIDE 0.9% 200 ML IV PRN (11:22)
[2020-08-15] MEDS: INSULIN GLARGINE UD 100 UNITS/ML SYR SUBCUT SCH ×2 (13:32→21:41)
[2020-08-15 17:48] LABS: PLATELET ESTIMATE INCREASED
[2020-08-15] MEDS: DILTIAZEM HCL 30MG TABLET PO SCH ×2 (20:45→23:34)
[2020-08-15] MEDS ORDERED: SODIUM CHLORIDE 0.9% 500 ML IV ONE (21:30)
[2020-08-15] MEDS: LATANOPROST 0.005% OPHTH DROPS 2.5ML RIGHTEYE SCH (21:35)
[2020-08-16] VITALS (97 sets, daily range): BP systolic 80–151; BP diastolic 52–102
[2020-08-16] MEDS: PIPERACILLIN/TAZOBACTAM 3.375 G in DEXT 5% WATER 100 ML IV SCH ×3 (03:11→14:31)
[2020-08-16] MEDS: FENTANYL CITRATE/PF 2,500 MCG in SODIUM CHLORIDE 0.9% 200 ML IV PRN ×3 (03:59→21:28)
[2020-08-16] MEDS ORDERED: DILTIAZEM HCL 5MG/ML 5ML VIAL IV SCH (04:00)
[2020-08-16] MEDS: POLYVINYL ALCOHOL OPHTH DROPS 15ML RIGHTEYE SCH ×5 (04:06→20:24)
[2020-08-16] MEDS: ACETAMINOPHEN 325MG TABLET PO PRN (04:43)
[2020-08-16] MEDS: IPRATROPIUM/ALBUTEROL 0.5-3(2.5)MG/3ML NEB HHN SCH ×6 (05:13→20:48)
[2020-08-16] MEDS: GABAPENTIN SOLN 300MG/6ML UDC GT SCH ×3 (06:06→21:09)
[2020-08-16] MEDS: METOCLOPRAMIDE HCL 10MG/2ML VIAL IV SCH ×3 (06:06→17:28)
[2020-08-16] MEDS: BLOOD SUGAR DIAGNOSTIC STRIP TEST SCH ×4 (06:06→20:25)
[2020-08-16] MEDS: DILTIAZEM HCL 30MG TABLET PO SCH ×4 (06:21→23:59)
[2020-08-16] MEDS: INSULIN LISPRO 100 UNITS/ML SUBCUT SCH ×7 (06:22→20:42)
[2020-08-16] MEDS: ZINC SULFATE 220 MG ( 50 ) CAPSULE PO SCH (08:10)
[2020-08-16] MEDS: ASCORBIC ACID 500 MG TABLET PO SCH ×2 (08:10→20:23)
[2020-08-16] MEDS: ASPIRIN 325MG TABLET GT SCH (08:10)
[2020-08-16] MEDS: FAMOTIDINE 20MG TABLET PO SCH ×2 (08:10→20:24)
[2020-08-16] MEDS: GUAIFENESIN/DM 600MG/30MG ER TAB 12HR PO SCH ×2 (08:10→20:24)
[2020-08-16] MEDS: ENOXAPARIN 40MG/0.4ML SYR SUBCUT SCH ×2 (08:11→20:23)
[2020-08-16] MEDS: TIMOLOL MALEATE 0.5% OPHTH DROPS 5ML RIGHTEYE SCH (08:11)
[2020-08-16] MEDS: BRIMONIDINE 0.2% OPHTH DROPS 5ML RIGHTEYE SCH ×2 (08:13→17:26)
[2020-08-16] MEDS: INSULIN GLARGINE UD 100 UNITS/ML SYR SUBCUT SCH ×2 (10:00→21:09)
[2020-08-16 10:37] LABS: BG BASE EXCESS 1.9 mmol/L (-2.0-2.0); BG DEOXYHEMOGLOBIN 9.9 % (0.0-5.0); BG FRACTION INSPIRED OXYGEN 90; BG HCO3 ACT 28.7 mmol/L (22.0-26.0); BG METHEMOGLOBIN 0.3 % (0.0-1.5); BG OXYGEN SATURATION 90.1 % (92.0-98.5); BG OXYHEMOGLOBIN 89.8 % (94.0-97.0); BG PCO2 52.9 mmHg (35.0-45.0); BG PH 7.352 (7.350-7.450); BG PO2 56.1 mmHg (75.0-100.0); BG SAMPLE SITE RIGHT RADIAL; BG TOTAL HEMOGLOBIN 15.9 g/dL (12.0-18.0); BG VENT MODE VENT - PRVC
[2020-08-16] MEDS: MIDAZOLAM HCL 100 MG in DEXT 5% WATER 80 ML IV PRN ×2 (12:42→18:19)
[2020-08-16] MEDS: LATANOPROST 0.005% OPHTH DROPS 2.5ML RIGHTEYE SCH (20:40)
[2020-08-17] VITALS (96 sets, daily range): BP systolic 83–121; BP diastolic 44–71
[2020-08-17] MEDS: POLYVINYL ALCOHOL OPHTH DROPS 15ML RIGHTEYE SCH ×7 (00:02→23:04)
[2020-08-17] MEDS: IPRATROPIUM/ALBUTEROL 0.5-3(2.5)MG/3ML NEB HHN SCH ×6 (00:19→20:46)
[2020-08-17] MEDS: ACETAMINOPHEN 325MG TABLET PO PRN ×2 (04:40→18:40)
[2020-08-17] MEDS: MIDAZOLAM HCL 100 MG in DEXT 5% WATER 80 ML IV PRN ×2 (04:46→14:00)
[2020-08-17] MEDS: FENTANYL CITRATE/PF 2,500 MCG in SODIUM CHLORIDE 0.9% 200 ML IV PRN ×3 (04:46→20:38)
[2020-08-17] MEDS: DILTIAZEM HCL 30MG TABLET PO SCH ×4 (05:55→23:03)
[2020-08-17] MEDS: METOCLOPRAMIDE HCL 10MG/2ML VIAL IV SCH ×5 (06:00→23:06)
[2020-08-17] MEDS: GABAPENTIN SOLN 300MG/6ML UDC GT SCH ×3 (06:00→22:04)
[2020-08-17] MEDS: INSULIN LISPRO 100 UNITS/ML SUBCUT SCH ×7 (06:01→20:50)
[2020-08-17] MEDS: BLOOD SUGAR DIAGNOSTIC STRIP TEST SCH ×4 (06:01→20:49)
[2020-08-17 06:02] LABS: CHLORIDE 113 mEq/L (98-107)
[2020-08-17 06:08] LABS: PHOSPHORUS 4.3 mg/dL (2.5-4.9)
[2020-08-17 08:08] LABS: *CREATININE RANDOM URINE 65.8 mg/dL (Not Estab.); MICROALBUMIN RANDOM URINE 5.6 ug/mL (Not Estab.)
[2020-08-17 09:03] LABS: HEMOGLOBIN. 12.9 g/dL (14.0-18.0); MEAN CORPUSCULAR HEMOGLOBIN 29.2 pg (28.0-32.0); MEAN CORPUSCULAR VOLUME 90.3 fL (80.0-94.0); MEAN PLATELET VOLUME 9.9 fl (7.4-10.4); PLATELET 235 x1000/uL (130-400); RED BLOOD CELL COUNT 4.43 mill/uL (4.7-6.1); RED CELL DISTRIBUTION WIDTH 14.1 % (11.6-14.6)
[2020-08-17 09:35] LABS: PLATELET ESTIMATE NORMAL
[2020-08-17] MEDS: GUAIFENESIN/DM 600MG/30MG ER TAB 12HR PO SCH ×2 (09:45→20:49)
[2020-08-17] MEDS: ASPIRIN 325MG TABLET GT SCH (09:46)
[2020-08-17] MEDS: DEXT 5%/0.2% NACL 1,000 ML IV SCH ×2 (09:50→18:41)
[2020-08-17] MEDS: TIMOLOL MALEATE 0.5% OPHTH DROPS 5ML RIGHTEYE SCH (09:51)
[2020-08-17] MEDS: BRIMONIDINE 0.2% OPHTH DROPS 5ML RIGHTEYE SCH ×2 (09:51→18:41)
[2020-08-17] MEDS: FAMOTIDINE 20MG TABLET PO SCH ×2 (09:53→20:49)
[2020-08-17] MEDS: ASCORBIC ACID 500 MG TABLET PO SCH ×2 (09:53→20:49)
[2020-08-17] MEDS: ZINC SULFATE 220 MG ( 50 ) CAPSULE PO SCH (09:53)
[2020-08-17] MEDS: ENOXAPARIN 40MG/0.4ML SYR SUBCUT SCH (09:53)
[2020-08-17] MEDS: DEXAMETHASONE 10 MG/ML VIAL IV SCH (10:00)
[2020-08-17] MEDS: INSULIN GLARGINE UD 100 UNITS/ML SYR SUBCUT SCH ×2 (10:01→22:05)
[2020-08-17] MEDS ORDERED: SODIUM POLYSTYRENE SULFONATE 15 G/60 ML BOT PO NR (11:00)
[2020-08-17] MEDS: PHENYLEPHRINE 100 MG in DEXT 5% WATER 240 ML IV PRN (11:42)
[2020-08-17 13:17] LABS: BG BASE EXCESS 3.3 mmol/L (-2.0-2.0); BG CARBOXYHEMOGLOBIN 1.1 % (0.5-1.5); BG DEOXYHEMOGLOBIN 15.4 % (0.0-5.0); BG FRACTION INSPIRED OXYGEN 100; BG HCO3 ACT 30.3 mmol/L (22.0-26.0); BG METHEMOGLOBIN 0.4 % (0.0-1.5); BG OXYGEN SATURATION 84.4 % (92.0-98.5); BG OXYHEMOGLOBIN 83.1 % (94.0-97.0); BG PCO2 55.9 mmHg (35.0-45.0); BG PH 7.352 (7.350-7.450); BG PO2 47.2 mmHg (75.0-100.0); BG SAMPLE SITE RIGHT RADIAL; BG TOTAL HEMOGLOBIN 14.2 g/dL (12.0-18.0); BG VENT MODE PRVC
[2020-08-17] MEDS: ENOXAPARIN 30MG/0.3ML SYR SUBCUT SCH (20:51)
[2020-08-17] MEDS: LATANOPROST 0.005% OPHTH DROPS 2.5ML RIGHTEYE SCH (20:53)
[2020-08-18] VITALS (97 sets, daily range): BP systolic 103–147; BP diastolic 49–98
[2020-08-18] MEDS: IPRATROPIUM/ALBUTEROL 0.5-3(2.5)MG/3ML NEB HHN SCH ×6 (00:40→21:37)
[2020-08-18] MEDS: MIDAZOLAM HCL 100 MG in DEXT 5% WATER 80 ML IV PRN ×3 (01:40→22:40)
[2020-08-18] MEDS: POLYVINYL ALCOHOL OPHTH DROPS 15ML RIGHTEYE SCH ×6 (03:06→23:46)
[2020-08-18] MEDS ORDERED: SODIUM POLYSTYRENE SULFONATE 15 G/60 ML BOT PO NR ×3 (04:00→12:00)
[2020-08-18] MEDS: FENTANYL CITRATE/PF 2,500 MCG in SODIUM CHLORIDE 0.9% 200 ML IV PRN ×3 (04:11→19:33)
[2020-08-18] MEDS: GABAPENTIN SOLN 300MG/6ML UDC GT SCH ×3 (05:39→21:41)
[2020-08-18] MEDS: INSULIN LISPRO 100 UNITS/ML SUBCUT SCH ×7 (05:40→21:26)
[2020-08-18] MEDS: BLOOD SUGAR DIAGNOSTIC STRIP TEST SCH ×4 (05:41→21:12)
[2020-08-18] MEDS: METOCLOPRAMIDE HCL 10MG/2ML VIAL IV SCH ×4 (05:41→23:44)
[2020-08-18] MEDS: DEXT 5%/0.2% NACL 1,000 ML IV SCH (05:45)
[2020-08-18] MEDS: DILTIAZEM HCL 30MG TABLET PO SCH ×4 (05:49→23:44)
[2020-08-18 05:52] LABS: HEMATOCRIT. 37.9 % (42.0-52.0); HEMOGLOBIN. 12.2 g/dL (14.0-18.0); MEAN CORPUSCULAR HEMOGLOBIN 29.2 pg (28.0-32.0); MEAN CORPUSCULAR VOLUME 90.8 fL (80.0-94.0); MEAN PLATELET VOLUME 10.1 fl (7.4-10.4); PLATELET 262 x1000/uL (130-400); RED BLOOD CELL COUNT 4.18 mill/uL (4.7-6.1); RED CELL DISTRIBUTION WIDTH 14.3 % (11.6-14.6)
[2020-08-18 05:54] LABS: CHLORIDE 109 mEq/L (98-107)
[2020-08-18] MEDS: ASPIRIN 325MG TABLET GT SCH (08:10)
[2020-08-18] MEDS: GUAIFENESIN/DM 600MG/30MG ER TAB 12HR PO SCH ×2 (08:54→21:19)
[2020-08-18] MEDS: ASCORBIC ACID 500 MG TABLET PO SCH ×2 (08:54→21:19)
[2020-08-18] MEDS: ZINC SULFATE 220 MG ( 50 ) CAPSULE PO SCH (08:54)
[2020-08-18] MEDS: DEXAMETHASONE 10 MG/ML VIAL IV SCH (08:54)
[2020-08-18] MEDS: ENOXAPARIN 30MG/0.3ML SYR SUBCUT SCH ×2 (08:55→21:19)
[2020-08-18] MEDS: TIMOLOL MALEATE 0.5% OPHTH DROPS 5ML RIGHTEYE SCH (08:55)
[2020-08-18] MEDS: BRIMONIDINE 0.2% OPHTH DROPS 5ML RIGHTEYE SCH ×2 (08:55→17:09)
[2020-08-18] MEDS: FAMOTIDINE 20MG TABLET PO SCH ×2 (08:55→21:19)
[2020-08-18 09:18] LABS: BG CARBOXYHEMOGLOBIN 0.5 % (0.5-1.5); BG DEOXYHEMOGLOBIN 7.3 % (0.0-5.0); BG FRACTION INSPIRED OXYGEN 100; BG HCO3 ACT 30.5 mmol/L (22.0-26.0); BG METHEMOGLOBIN 0.3 % (0.0-1.5); BG OXYGEN SATURATION 92.6 % (92.0-98.5); BG OXYHEMOGLOBIN 91.9 % (94.0-97.0); BG PH 7.282 (7.350-7.450); BG SAMPLE SITE RIGHT RADIAL; BG TOTAL HEMOGLOBIN 13.4 g/dL (12.0-18.0); BG VENT MODE PRVC
[2020-08-18] MEDS: INSULIN GLARGINE UD 100 UNITS/ML SYR SUBCUT SCH ×2 (12:27→21:41)
[2020-08-18] MEDS: SODIUM CHLORIDE 0.45% 1,000 ML IV SCH ×2 (13:35→23:46)
[2020-08-18 14:13] LABS: PLATELET ESTIMATE NORMAL
[2020-08-18] MEDS: PIPERACILLIN/TAZOBACTAM 3.375 G in DEXT 5% WATER 100 ML IV SCH ×2 (17:09→21:41)
[2020-08-18] MEDS: ACETAMINOPHEN 325MG TABLET PO PRN (17:21)
[2020-08-18] MEDS: LATANOPROST 0.005% OPHTH DROPS 2.5ML RIGHTEYE SCH (21:27)
[2020-08-19] VITALS (89 sets, daily range): BP systolic 106–151; BP diastolic 62–115
[2020-08-19] MEDS: IPRATROPIUM/ALBUTEROL 0.5-3(2.5)MG/3ML NEB HHN SCH ×7 (00:30→21:00)
[2020-08-19] MEDS: FENTANYL CITRATE/PF 2,500 MCG in SODIUM CHLORIDE 0.9% 200 ML IV PRN ×3 (02:54→23:13)
[2020-08-19] MEDS: PIPERACILLIN/TAZOBACTAM 3.375 G in DEXT 5% WATER 100 ML IV SCH ×4 (03:04→21:45)
[2020-08-19] MEDS: POLYVINYL ALCOHOL OPHTH DROPS 15ML RIGHTEYE SCH ×5 (03:04→20:28)
[2020-08-19] MEDS: METOCLOPRAMIDE HCL 10MG/2ML VIAL IV SCH ×3 (05:37→17:42)
[2020-08-19] MEDS: GABAPENTIN SOLN 300MG/6ML UDC GT SCH ×3 (05:37→21:45)
[2020-08-19] MEDS: BLOOD SUGAR DIAGNOSTIC STRIP TEST SCH ×4 (05:38→21:26)
[2020-08-19] MEDS: DILTIAZEM HCL 30MG TABLET PO SCH ×3 (05:38→17:42)
[2020-08-19] MEDS: INSULIN LISPRO 100 UNITS/ML SUBCUT SCH ×7 (05:39→21:30)
[2020-08-19 05:50] LABS: HEMATOCRIT. 39.8 % (42.0-52.0); HEMOGLOBIN. 12.8 g/dL (14.0-18.0); MEAN CORPUSCULAR HEMOGLOBIN 29.1 pg (28.0-32.0); MEAN CORPUSCULAR VOLUME 90.8 fL (80.0-94.0); MEAN PLATELET VOLUME 10.3 fl (7.4-10.4); PLATELET 286 x1000/uL (130-400); RED BLOOD CELL COUNT 4.39 mill/uL (4.7-6.1); RED CELL DISTRIBUTION WIDTH 13.9 % (11.6-14.6)
[2020-08-19 05:53] LABS: CHLORIDE 107 mEq/L (98-107)
[2020-08-19 05:58] LABS: PHOSPHORUS 3.9 mg/dL (2.5-4.9)
[2020-08-19] MEDS: GUAIFENESIN/DM 600MG/30MG ER TAB 12HR PO SCH ×2 (09:00→21:00)
[2020-08-19 09:20] LABS: BG BASE EXCESS -1.4 mmol/L (-2.0-2.0); BG CARBOXYHEMOGLOBIN 0.2 % (0.5-1.5); BG DEOXYHEMOGLOBIN 5.4 % (0.0-5.0); BG FRACTION INSPIRED OXYGEN 100; BG HCO3 ACT 25.1 mmol/L (22.0-26.0); BG METHEMOGLOBIN 0.2 % (0.0-1.5); BG OXYGEN SATURATION 94.6 % (92.0-98.5); BG OXYHEMOGLOBIN 94.2 % (94.0-97.0); BG PH 7.327 (7.350-7.450); BG SAMPLE SITE LEFT RADIAL; BG TOTAL HEMOGLOBIN 14.8 g/dL (12.0-18.0); BG TOTAL RESPIRATORY RATE 30 b/min; BG VENT MODE VENT- PRVC
[2020-08-19] MEDS: FAMOTIDINE 20MG TABLET PO SCH ×2 (10:18→21:23)
[2020-08-19] MEDS: ASPIRIN 325MG TABLET GT SCH (10:18)
[2020-08-19] MEDS: BRIMONIDINE 0.2% OPHTH DROPS 5ML RIGHTEYE SCH ×2 (10:18→17:46)
[2020-08-19] MEDS: ZINC SULFATE 220 MG ( 50 ) CAPSULE PO SCH (10:18)
[2020-08-19] MEDS: ASCORBIC ACID 500 MG TABLET PO SCH ×2 (10:18→21:22)
[2020-08-19] MEDS: LACTULOSE 20G/30ML UDC PO PRN (10:18)
[2020-08-19] MEDS: DEXAMETHASONE 10 MG/ML VIAL IV SCH (10:19)
[2020-08-19] MEDS: ENOXAPARIN 30MG/0.3ML SYR SUBCUT SCH ×2 (10:20→21:23)
[2020-08-19] MEDS: TIMOLOL MALEATE 0.5% OPHTH DROPS 5ML RIGHTEYE SCH (10:20)
[2020-08-19] MEDS: MIDAZOLAM HCL 100 MG in DEXT 5% WATER 80 ML IV PRN (10:22)
[2020-08-19] MEDS: INSULIN GLARGINE UD 100 UNITS/ML SYR SUBCUT SCH ×2 (10:23→22:15)
[2020-08-19] MEDS: GUAIFENESIN 200MG/10ML SUGAR FREE UDC PO PRN (13:02)
[2020-08-19] MEDS: SODIUM CHLORIDE 0.45% 1,000 ML IV SCH ×2 (13:05→23:45)
[2020-08-19 17:32] LABS: PLATELET ESTIMATE NORMAL
[2020-08-19] MEDS: LATANOPROST 0.005% OPHTH DROPS 2.5ML RIGHTEYE SCH (21:25)
[2020-08-20] VITALS (94 sets, daily range): BP systolic 88–122; BP diastolic 49–70
[2020-08-20] MEDS: METOCLOPRAMIDE HCL 10MG/2ML VIAL IV SCH ×4 (00:05→18:05)
[2020-08-20] MEDS: POLYVINYL ALCOHOL OPHTH DROPS 15ML RIGHTEYE SCH ×6 (00:05→21:29)
[2020-08-20] MEDS: DILTIAZEM HCL 30MG TABLET PO SCH ×4 (00:06→18:06)
[2020-08-20] MEDS: IPRATROPIUM/ALBUTEROL 0.5-3(2.5)MG/3ML NEB HHN SCH ×5 (01:21→21:46)
[2020-08-20] MEDS: MIDAZOLAM HCL 100 MG in DEXT 5% WATER 80 ML IV PRN ×3 (02:23→23:38)
[2020-08-20] MEDS: ACETAMINOPHEN 325MG TABLET PO PRN ×2 (04:08→10:09)
[2020-08-20] MEDS: PIPERACILLIN/TAZOBACTAM 3.375 G in DEXT 5% WATER 100 ML IV SCH ×4 (04:20→21:26)
[2020-08-20] MEDS: BLOOD SUGAR DIAGNOSTIC STRIP TEST SCH ×4 (05:40→21:09)
[2020-08-20] MEDS: GABAPENTIN SOLN 300MG/6ML UDC GT SCH ×3 (06:21→21:25)
[2020-08-20] MEDS: INSULIN LISPRO 100 UNITS/ML SUBCUT SCH ×7 (07:06→21:23)
[2020-08-20] MEDS: FENTANYL CITRATE/PF 2,500 MCG in SODIUM CHLORIDE 0.9% 200 ML IV PRN ×3 (07:50→23:14)
[2020-08-20] MEDS: GUAIFENESIN/DM 600MG/30MG ER TAB 12HR PO SCH ×2 (09:00→21:00)
[2020-08-20] MEDS: ASPIRIN 325MG TABLET GT SCH (10:09)
[2020-08-20] MEDS: ASCORBIC ACID 500 MG TABLET PO SCH ×2 (10:09→21:25)
[2020-08-20] MEDS: ZINC SULFATE 220 MG ( 50 ) CAPSULE PO SCH (10:09)
[2020-08-20] MEDS: DEXAMETHASONE 10 MG/ML VIAL IV SCH (10:09)
[2020-08-20] MEDS: ENOXAPARIN 30MG/0.3ML SYR SUBCUT SCH ×2 (10:10→21:25)
[2020-08-20] MEDS: FAMOTIDINE 20MG TABLET PO SCH ×2 (10:10→21:25)
[2020-08-20] MEDS: BRIMONIDINE 0.2% OPHTH DROPS 5ML RIGHTEYE SCH ×2 (10:11→17:00)
[2020-08-20] MEDS: INSULIN GLARGINE UD 100 UNITS/ML SYR SUBCUT SCH ×2 (10:14→21:24)
[2020-08-20] MEDS: TIMOLOL MALEATE 0.5% OPHTH DROPS 5ML RIGHTEYE SCH (10:15)
[2020-08-20] MEDS: SODIUM CHLORIDE 0.45% 1,000 ML IV SCH ×3 (12:20→20:50)
[2020-08-20 13:21] LABS: BG BASE EXCESS -0.5 mmol/L (-2.0-2.0); BG CARBOXYHEMOGLOBIN 0.4 % (0.5-1.5); BG DEOXYHEMOGLOBIN 9.5 % (0.0-5.0); BG HCO3 ACT 25.6 mmol/L (22.0-26.0); BG METHEMOGLOBIN 0.4 % (0.0-1.5); BG OXYGEN SATURATION 90.4 % (92.0-98.5); BG OXYHEMOGLOBIN 89.7 % (94.0-97.0); BG PCO2 47.4 mmHg (35.0-45.0); BG PO2 56.9 mmHg (75.0-100.0); BG SAMPLE SITE RIGHT RADIAL; BG TOTAL HEMOGLOBIN 13.3 g/dL (12.0-18.0); BG VENT MODE VENT- PRVC
[2020-08-20] MEDS: ACETAMINOPHEN 650MG/20.3ML UDC PO PRN (16:11)
[2020-08-20] MEDS: SODIUM POLYSTYRENE SULFONATE 15 G/60 ML BOT PO PRN (16:37)
[2020-08-20] MEDS: PHENYLEPHRINE 100 MG in DEXT 5% WATER 240 ML IV PRN (17:16)
[2020-08-20] MEDS: LATANOPROST 0.005% OPHTH DROPS 2.5ML RIGHTEYE SCH (21:25)
[2020-08-21] VITALS (95 sets, daily range): BP systolic 107–137; BP diastolic 49–89
[2020-08-21] MEDS: IPRATROPIUM/ALBUTEROL 0.5-3(2.5)MG/3ML NEB HHN SCH ×6 (00:36→21:15)
[2020-08-21] MEDS: METOCLOPRAMIDE HCL 10MG/2ML VIAL IV SCH ×4 (00:40→17:40)
[2020-08-21] MEDS: DILTIAZEM HCL 30MG TABLET PO SCH ×4 (00:41→17:40)
[2020-08-21] MEDS: POLYVINYL ALCOHOL OPHTH DROPS 15ML RIGHTEYE SCH ×6 (00:42→20:00)
[2020-08-21 01:02] LABS: CHLORIDE 105 mEq/L (98-107)
[2020-08-21] MEDS: FENTANYL CITRATE/PF 2,500 MCG in SODIUM CHLORIDE 0.9% 200 ML IV PRN ×3 (03:15→22:48)
[2020-08-21] MEDS: PIPERACILLIN/TAZOBACTAM 3.375 G in DEXT 5% WATER 100 ML IV SCH ×4 (04:53→21:19)
[2020-08-21] MEDS: BLOOD SUGAR DIAGNOSTIC STRIP TEST SCH ×4 (05:55→21:20)
[2020-08-21] MEDS: GABAPENTIN SOLN 300MG/6ML UDC GT SCH ×3 (06:01→21:18)
[2020-08-21] MEDS: INSULIN LISPRO 100 UNITS/ML SUBCUT SCH ×7 (06:01→21:23)
[2020-08-21 06:15] LABS: CHLORIDE 106 mEq/L (98-107)
[2020-08-21 07:19] LABS: HEMATOCRIT. 35.4 % (42.0-52.0); HEMOGLOBIN. 11.7 g/dL (14.0-18.0); MEAN CORPUSCULAR HEMOGLOBIN 29.7 pg (28.0-32.0); MEAN PLATELET VOLUME 10.5 fl (7.4-10.4); PLATELET 262 x1000/uL (130-400); RED BLOOD CELL COUNT 3.93 mill/uL (4.7-6.1); RED CELL DISTRIBUTION WIDTH 14.4 % (11.6-14.6)
[2020-08-21] MEDS: SODIUM CHLORIDE 0.45% 1,000 ML IV SCH ×2 (08:01→21:25)
[2020-08-21] MEDS: MIDAZOLAM HCL 100 MG in DEXT 5% WATER 80 ML IV PRN ×2 (08:15→18:27)
[2020-08-21] MEDS: GUAIFENESIN/DM 600MG/30MG ER TAB 12HR PO SCH (09:00)
[2020-08-21] MEDS: ASCORBIC ACID 500 MG TABLET PO SCH ×2 (09:03→21:18)
[2020-08-21] MEDS: FAMOTIDINE 20MG TABLET PO SCH ×2 (09:03→21:18)
[2020-08-21] MEDS: DEXAMETHASONE 10 MG/ML VIAL IV SCH (09:03)
[2020-08-21] MEDS: ASPIRIN 325MG TABLET GT SCH (09:03)
[2020-08-21] MEDS: ZINC SULFATE 220 MG ( 50 ) CAPSULE PO SCH (09:03)
[2020-08-21] MEDS: ENOXAPARIN 30MG/0.3ML SYR SUBCUT SCH (09:03)
[2020-08-21] MEDS: BRIMONIDINE 0.2% OPHTH DROPS 5ML RIGHTEYE SCH ×2 (09:05→16:48)
[2020-08-21] MEDS: TIMOLOL MALEATE 0.5% OPHTH DROPS 5ML RIGHTEYE SCH (09:09)
[2020-08-21] MEDS: INSULIN GLARGINE UD 100 UNITS/ML SYR SUBCUT SCH ×2 (09:11→22:48)
[2020-08-21 09:55] LABS: BG BASE EXCESS -0.9 mmol/L (-2.0-2.0); BG CARBOXYHEMOGLOBIN 0.5 % (0.5-1.5); BG DEOXYHEMOGLOBIN 4.5 % (0.0-5.0); BG FRACTION INSPIRED OXYGEN 100; BG HCO3 ACT 25.4 mmol/L (22.0-26.0); BG METHEMOGLOBIN 0.3 % (0.0-1.5); BG OXYGEN SATURATION 95.5 % (92.0-98.5); BG OXYHEMOGLOBIN 94.7 % (94.0-97.0); BG PCO2 48.9 mmHg (35.0-45.0); BG PH 7.334 (7.350-7.450); BG PO2 79.9 mmHg (75.0-100.0); BG SAMPLE SITE RIGHT RADIAL; BG TOTAL HEMOGLOBIN 12.5 g/dL (12.0-18.0); BG VENT MODE PRVC
[2020-08-21] MEDS: LACTULOSE 20G/30ML UDC PO PRN ×2 (13:19→21:18)
[2020-08-21 14:21] LABS: PLATELET ESTIMATE NORMAL
[2020-08-21] MEDS: PHENYLEPHRINE 100 MG in DEXT 5% WATER 240 ML IV PRN (18:28)
[2020-08-21] MEDS: ENOXAPARIN 40MG/0.4ML SYR SUBCUT SCH (21:19)
[2020-08-21] MEDS: LATANOPROST 0.005% OPHTH DROPS 2.5ML RIGHTEYE SCH (21:24)
[2020-08-22] VITALS (92 sets, daily range): BP systolic 49–141; BP diastolic 21–87
[2020-08-22] MEDS: IPRATROPIUM/ALBUTEROL 0.5-3(2.5)MG/3ML NEB HHN SCH ×6 (00:25→20:41)
[2020-08-22] MEDS: POLYVINYL ALCOHOL OPHTH DROPS 15ML RIGHTEYE SCH ×7 (00:48→23:26)
[2020-08-22] MEDS: METOCLOPRAMIDE HCL 10MG/2ML VIAL IV SCH ×5 (00:49→23:25)
[2020-08-22] MEDS: MIDAZOLAM HCL 100 MG in SODIUM CHLORIDE 0.9% 80 ML IV PRN ×2 (05:09→13:55)
[2020-08-22] MEDS: PIPERACILLIN/TAZOBACTAM 3.375 G in DEXT 5% WATER 100 ML IV SCH ×4 (05:15→21:52)
[2020-08-22] MEDS: DILTIAZEM HCL 30MG TABLET PO SCH ×5 (06:00→23:25)
[2020-08-22] MEDS: BLOOD SUGAR DIAGNOSTIC STRIP TEST SCH ×4 (06:03→21:48)
[2020-08-22] MEDS: INSULIN LISPRO 100 UNITS/ML SUBCUT SCH ×7 (06:10→21:53)
[2020-08-22] MEDS: GABAPENTIN SOLN 300MG/6ML UDC GT SCH ×3 (06:12→21:48)
[2020-08-22] MEDS: FENTANYL CITRATE/PF 2,500 MCG in SODIUM CHLORIDE 0.9% 200 ML IV PRN ×3 (06:41→23:24)
[2020-08-22 08:13] LABS: BG CARBOXYHEMOGLOBIN 0.4 % (0.5-1.5); BG DEOXYHEMOGLOBIN 7.2 % (0.0-5.0); BG HCO3 ACT 25.5 mmol/L (22.0-26.0); BG METHEMOGLOBIN 0.2 % (0.0-1.5); BG OXYGEN SATURATION 92.8 % (92.0-98.5); BG OXYHEMOGLOBIN 92.2 % (94.0-97.0); BG PCO2 45.2 mmHg (35.0-45.0); BG PO2 64.4 mmHg (75.0-100.0); BG SAMPLE SITE RIGHT RADIAL; BG TOTAL HEMOGLOBIN 12.9 g/dL (12.0-18.0); BG VENT MODE VENT- PRVC
[2020-08-22] MEDS: SODIUM CHLORIDE 0.45% 1,000 ML IV SCH ×2 (08:51→18:57)
[2020-08-22] MEDS: DEXAMETHASONE 10 MG/ML VIAL IV SCH (09:02)
[2020-08-22] MEDS: ENOXAPARIN 40MG/0.4ML SYR SUBCUT SCH ×2 (09:02→21:48)
[2020-08-22] MEDS: ASCORBIC ACID 500 MG TABLET PO SCH ×2 (09:02→21:48)
[2020-08-22] MEDS: ASPIRIN 325MG TABLET GT SCH (09:02)
[2020-08-22] MEDS: ZINC SULFATE 220 MG ( 50 ) CAPSULE PO SCH (09:02)
[2020-08-22] MEDS: INSULIN GLARGINE UD 100 UNITS/ML SYR SUBCUT SCH ×2 (09:03→21:54)
[2020-08-22] MEDS: TIMOLOL MALEATE 0.5% OPHTH DROPS 5ML RIGHTEYE SCH (09:07)
[2020-08-22] MEDS: BRIMONIDINE 0.2% OPHTH DROPS 5ML RIGHTEYE SCH ×2 (09:08→16:52)
[2020-08-22] MEDS: FAMOTIDINE 20MG TABLET PO SCH ×2 (09:14→21:48)
[2020-08-22 12:22] LABS: CHLORIDE 104 mEq/L (98-107)
[2020-08-22 12:32] LABS: HEMATOCRIT. 36.3 % (42.0-52.0); HEMOGLOBIN. 11.8 g/dL (14.0-18.0); MEAN CORPUSCULAR HEMOGLOBIN 29.3 pg (28.0-32.0); MEAN CORPUSCULAR VOLUME 89.9 fL (80.0-94.0); MEAN PLATELET VOLUME 10.4 fl (7.4-10.4); PLATELET 260 x1000/uL (130-400); RED BLOOD CELL COUNT 4.04 mill/uL (4.7-6.1); RED CELL DISTRIBUTION WIDTH 14.1 % (11.6-14.6)
[2020-08-22 20:28] LABS: PLATELET ESTIMATE NORMAL
[2020-08-22] MEDS: LATANOPROST 0.005% OPHTH DROPS 2.5ML RIGHTEYE SCH (21:00)
[2020-08-22] MEDS: LACTULOSE 20G/30ML UDC PO PRN (21:48)
[2020-08-22] MEDS: MIDAZOLAM HCL 100 MG in DEXT 5% WATER 80 ML IV PRN (23:24)
[2020-08-23] VITALS (96 sets, daily range): BP systolic 82–130; BP diastolic 40–88
[2020-08-23] MEDS: IPRATROPIUM/ALBUTEROL 0.5-3(2.5)MG/3ML NEB HHN SCH ×6 (00:11→20:11)
[2020-08-23] MEDS: PIPERACILLIN/TAZOBACTAM 3.375 G in DEXT 5% WATER 100 ML IV SCH ×3 (03:57→18:28)
[2020-08-23] MEDS: POLYVINYL ALCOHOL OPHTH DROPS 15ML RIGHTEYE SCH ×5 (03:57→20:37)
[2020-08-23] MEDS: FENTANYL CITRATE/PF 2,500 MCG in SODIUM CHLORIDE 0.9% 200 ML IV PRN ×3 (05:14→18:57)
[2020-08-23] MEDS: GABAPENTIN SOLN 300MG/6ML UDC GT SCH ×3 (05:58→21:20)
[2020-08-23] MEDS: METOCLOPRAMIDE HCL 10MG/2ML VIAL IV SCH ×3 (05:58→18:53)
[2020-08-23] MEDS: INSULIN LISPRO 100 UNITS/ML SUBCUT SCH ×7 (05:59→21:21)
[2020-08-23] MEDS: DILTIAZEM HCL 30MG TABLET PO SCH ×3 (06:00→18:38)
[2020-08-23] MEDS: BLOOD SUGAR DIAGNOSTIC STRIP TEST SCH ×4 (06:01→21:08)
[2020-08-23] MEDS: INSULIN GLARGINE UD 100 UNITS/ML SYR SUBCUT SCH ×2 (10:00→21:21)
[2020-08-23] MEDS: MIDAZOLAM HCL 100 MG in DEXT 5% WATER 80 ML IV PRN ×2 (10:30→18:55)
[2020-08-23] MEDS: SODIUM CHLORIDE 0.45% 1,000 ML IV SCH ×3 (10:50→23:04)
[2020-08-23] MEDS: ASPIRIN 325MG TABLET GT SCH (10:51)
[2020-08-23] MEDS: ENOXAPARIN 40MG/0.4ML SYR SUBCUT SCH ×2 (10:51→21:08)
[2020-08-23] MEDS: FAMOTIDINE 20MG TABLET PO SCH ×2 (10:51→21:08)
[2020-08-23] MEDS: ZINC SULFATE 220 MG ( 50 ) CAPSULE PO SCH (10:51)
[2020-08-23] MEDS: ASCORBIC ACID 500 MG TABLET PO SCH ×2 (10:52→21:08)
[2020-08-23] MEDS: TIMOLOL MALEATE 0.5% OPHTH DROPS 5ML RIGHTEYE SCH (11:01)
[2020-08-23] MEDS: BRIMONIDINE 0.2% OPHTH DROPS 5ML RIGHTEYE SCH ×2 (11:02→18:29)
[2020-08-23] MEDS ORDERED: NA PHOS,M-B/NA PHOS,DI-BA ENEMA 118ML PR SCH (12:15)
[2020-08-23] MEDS ORDERED: FENTANYL CITRATE/PF 2,500 MCG in SODIUM CHLORIDE 0.9% 200 ML IV PRN (12:15)
[2020-08-23] MEDS ORDERED: POLYETHYLENE GLYCOL 3350 (17GM) 1 DOSE PACK PO SCH (12:15)
[2020-08-23] MEDS: DEXAMETHASONE 10 MG/ML VIAL IV SCH (12:25)
[2020-08-23 14:41] LABS: BG BASE EXCESS 2.6 mmol/L (-2.0-2.0); BG CARBOXYHEMOGLOBIN 0.4 % (0.5-1.5); BG DEOXYHEMOGLOBIN 4.6 % (0.0-5.0); BG FRACTION INSPIRED OXYGEN 100; BG HCO3 ACT 28.1 mmol/L (22.0-26.0); BG METHEMOGLOBIN 0.1 % (0.0-1.5); BG OXYGEN SATURATION 95.4 % (92.0-98.5); BG OXYHEMOGLOBIN 94.9 % (94.0-97.0); BG PCO2 47.2 mmHg (35.0-45.0); BG PH 7.393 (7.350-7.450); BG PO2 74.2 mmHg (75.0-100.0); BG SAMPLE SITE RIGHT RADIAL; BG TOTAL HEMOGLOBIN 13.3 g/dL (12.0-18.0); BG TOTAL RESPIRATORY RATE 34 b/min; BG VENT MODE VENT- PRVC
[2020-08-23] MEDS: LACTULOSE 20G/30ML UDC PO PRN (21:08)
[2020-08-23] MEDS: LATANOPROST 0.005% OPHTH DROPS 2.5ML RIGHTEYE SCH (21:34)
[2020-08-24] VITALS (98 sets, daily range): BP systolic 87–163; BP diastolic 57–103
[2020-08-24] MEDS: DILTIAZEM HCL 30MG TABLET PO SCH ×4 (00:52→18:32)
[2020-08-24] MEDS: POLYVINYL ALCOHOL OPHTH DROPS 15ML RIGHTEYE SCH ×6 (00:52→20:00)
[2020-08-24] MEDS: METOCLOPRAMIDE HCL 10MG/2ML VIAL IV SCH ×4 (00:52→18:32)
[2020-08-24] MEDS: IPRATROPIUM/ALBUTEROL 0.5-3(2.5)MG/3ML NEB HHN SCH ×6 (01:09→20:17)
[2020-08-24] MEDS: FENTANYL CITRATE/PF 2,500 MCG in SODIUM CHLORIDE 0.9% 200 ML IV PRN ×2 (04:45→18:33)
[2020-08-24] MEDS: INSULIN LISPRO 100 UNITS/ML SUBCUT SCH ×7 (05:48→21:00)
[2020-08-24] MEDS: GABAPENTIN SOLN 300MG/6ML UDC GT SCH ×3 (05:49→22:54)
[2020-08-24] MEDS: BLOOD SUGAR DIAGNOSTIC STRIP TEST SCH ×4 (06:02→21:00)
[2020-08-24 06:07] LABS: CHLORIDE 106 mEq/L (98-107)
[2020-08-24 06:25] LABS: HEMATOCRIT. 35.2 % (42.0-52.0); HEMOGLOBIN. 11.4 g/dL (14.0-18.0); MEAN CORPUSCULAR HEMOGLOBIN 28.8 pg (28.0-32.0); MEAN CORPUSCULAR VOLUME 89.1 fL (80.0-94.0); MEAN PLATELET VOLUME 9.8 fl (7.4-10.4); PLATELET 262 x1000/uL (130-400); RED BLOOD CELL COUNT 3.95 mill/uL (4.7-6.1); RED CELL DISTRIBUTION WIDTH 14.4 % (11.6-14.6)
[2020-08-24] MEDS: MIDAZOLAM HCL 100 MG in DEXT 5% WATER 80 ML IV PRN ×3 (06:30→18:34)
[2020-08-24] MEDS: PHENYLEPHRINE 100 MG in DEXT 5% WATER 240 ML IV PRN (06:30)
[2020-08-24] MEDS: ENOXAPARIN 40MG/0.4ML SYR SUBCUT SCH ×2 (08:29→22:51)
[2020-08-24] MEDS: TIMOLOL MALEATE 0.5% OPHTH DROPS 5ML RIGHTEYE SCH (08:29)
[2020-08-24] MEDS: DOCUSATE SODIUM 100MG CAPSULE PO PRN (08:29)
[2020-08-24] MEDS: ASCORBIC ACID 500 MG TABLET PO SCH ×2 (08:30→22:51)
[2020-08-24] MEDS: FAMOTIDINE 20MG TABLET PO SCH ×2 (08:30→22:51)
[2020-08-24] MEDS: ZINC SULFATE 220 MG ( 50 ) CAPSULE PO SCH (08:30)
[2020-08-24] MEDS: ASPIRIN 325MG TABLET GT SCH (08:30)
[2020-08-24] MEDS: DEXAMETHASONE 10 MG/ML VIAL IV SCH (08:30)
[2020-08-24] MEDS: BRIMONIDINE 0.2% OPHTH DROPS 5ML RIGHTEYE SCH ×2 (08:45→18:32)
[2020-08-24] MEDS: SODIUM CHLORIDE 0.45% 1,000 ML IV SCH ×2 (08:45→18:32)
[2020-08-24] MEDS: INSULIN GLARGINE UD 100 UNITS/ML SYR SUBCUT SCH ×2 (10:00→22:53)
[2020-08-24 10:31] LABS: BG DEOXYHEMOGLOBIN 0.7 % (0.0-5.0); BG FRACTION INSPIRED OXYGEN 100; BG HCO3 ACT 25.2 mmol/L (22.0-26.0); BG METHEMOGLOBIN 0.4 % (0.0-1.5); BG OXYGEN SATURATION 99.3 % (92.0-98.5); BG OXYHEMOGLOBIN 97.9 % (94.0-97.0); BG PCO2 38.7 mmHg (35.0-45.0); BG PH 7.432 (7.350-7.450); BG PO2 158.9 mmHg (75.0-100.0); BG SAMPLE SITE RIGHT RADIAL; BG TOTAL HEMOGLOBIN 11.9 g/dL (12.0-18.0); BG VENT MODE VENT - AC/PRVC
[2020-08-24] MEDS ORDERED: SORBITOL 70% SOLN 30ML PO NR (11:00)
[2020-08-24] MEDS ORDERED: BISACODYL 10MG SUPP PR SCH (12:00)
[2020-08-24] MEDS ORDERED: BISACODYL 10MG SUPP PR PRN (12:00)
[2020-08-24 13:26] LABS: PLATELET ESTIMATE NORMAL
[2020-08-24 15:19] LABS: BG BASE EXCESS -3.5 mmol/L (-2.0-2.0); BG DEOXYHEMOGLOBIN 41.6 % (0.0-5.0); BG FRACTION INSPIRED OXYGEN 100; BG HCO3 ACT 23.2 mmol/L (22.0-26.0); BG METHEMOGLOBIN 0.2 % (0.0-1.5); BG OXYGEN SATURATION 57.9 % (92.0-98.5); BG OXYHEMOGLOBIN 57.2 % (94.0-97.0); BG PCO2 47.9 mmHg (35.0-45.0); BG PH 7.303 (7.350-7.450); BG SAMPLE SITE RIGHT RADIAL; BG VENT MODE VENT - AC
[2020-08-24] MEDS: LATANOPROST 0.005% OPHTH DROPS 2.5ML RIGHTEYE SCH (21:00)
[2020-08-25] VITALS (92 sets, daily range): BP systolic 85–153; BP diastolic 49–86
[2020-08-25] MEDS: IPRATROPIUM/ALBUTEROL 0.5-3(2.5)MG/3ML NEB HHN SCH ×5 (00:48→21:26)
[2020-08-25] MEDS: METOCLOPRAMIDE HCL 10MG/2ML VIAL IV SCH ×5 (01:15→22:36)
[2020-08-25] MEDS: DILTIAZEM HCL 30MG TABLET PO SCH ×5 (01:16→22:36)
[2020-08-25] MEDS: POLYVINYL ALCOHOL OPHTH DROPS 15ML RIGHTEYE SCH ×7 (04:38→23:49)
[2020-08-25] MEDS: FENTANYL CITRATE/PF 2,500 MCG in SODIUM CHLORIDE 0.9% 200 ML IV PRN ×3 (04:39→20:08)
[2020-08-25] MEDS: SODIUM CHLORIDE 0.45% 1,000 ML IV SCH ×2 (05:33→16:16)
[2020-08-25] MEDS: INSULIN LISPRO 100 UNITS/ML SUBCUT SCH ×7 (06:30→23:48)
[2020-08-25] MEDS: BLOOD SUGAR DIAGNOSTIC STRIP TEST SCH ×4 (06:53→23:47)
[2020-08-25] MEDS: DEXAMETHASONE 10 MG/ML VIAL IV SCH (08:28)
[2020-08-25] MEDS: ASPIRIN 325MG TABLET GT SCH (08:28)
[2020-08-25] MEDS: ENOXAPARIN 40MG/0.4ML SYR SUBCUT SCH ×2 (08:28→22:31)
[2020-08-25] MEDS: ZINC SULFATE 220 MG ( 50 ) CAPSULE PO SCH (08:28)
[2020-08-25] MEDS: FAMOTIDINE 20MG TABLET PO SCH ×2 (08:29→22:31)
[2020-08-25] MEDS: ASCORBIC ACID 500 MG TABLET PO SCH ×2 (08:29→22:31)
[2020-08-25] MEDS: GABAPENTIN SOLN 300MG/6ML UDC GT SCH ×3 (08:29→22:31)
[2020-08-25] MEDS: TIMOLOL MALEATE 0.5% OPHTH DROPS 5ML RIGHTEYE SCH (08:30)
[2020-08-25] MEDS: BRIMONIDINE 0.2% OPHTH DROPS 5ML RIGHTEYE SCH ×2 (08:30→16:44)
[2020-08-25] MEDS: MIDAZOLAM HCL 100 MG in DEXT 5% WATER 80 ML IV PRN ×2 (09:06→16:20)
[2020-08-25 09:23] LABS: BG BASE EXCESS 3.5 mmol/L (-2.0-2.0); BG CARBOXYHEMOGLOBIN 0.8 % (0.5-1.5); BG DEOXYHEMOGLOBIN 14.9 % (0.0-5.0); BG FRACTION INSPIRED OXYGEN 100; BG HCO3 ACT 30.9 mmol/L (22.0-26.0); BG METHEMOGLOBIN 0.1 % (0.0-1.5); BG OXYHEMOGLOBIN 84.2 % (94.0-97.0); BG PCO2 58.3 mmHg (35.0-45.0); BG PH 7.342 (7.350-7.450); BG PO2 50.1 mmHg (75.0-100.0); BG TOTAL HEMOGLOBIN 14.8 g/dL (12.0-18.0); BG VENT MODE VENT - AC
[2020-08-25] MEDS: PROPOFOL 10MG/ML 100ML 100 ML IV PRN ×3 (10:47→18:51)
[2020-08-25] MEDS: INSULIN GLARGINE UD 100 UNITS/ML SYR SUBCUT SCH ×2 (10:47→22:34)
[2020-08-25] MEDS: MAGNESIUM CITRATE 300ML SOLUTION PO SCH ×2 (13:15→22:31)
[2020-08-25] MEDS: PHENYLEPHRINE 100 MG in DEXT 5% WATER 240 ML IV PRN ×2 (16:18→23:47)
[2020-08-25] MEDS ORDERED: INSULIN LISPRO 100 UNITS/ML SUBCUT SCH (22:00)
[2020-08-25] MEDS ORDERED: BLOOD SUGAR DIAGNOSTIC STRIP TEST SCH (22:00)
[2020-08-25] MEDS: LATANOPROST 0.005% OPHTH DROPS 2.5ML RIGHTEYE SCH (22:32)
[2020-08-26] VITALS (94 sets, daily range): BP systolic 93–164; BP diastolic 50–92
[2020-08-26] MEDS: MIDAZOLAM HCL 100 MG in DEXT 5% WATER 80 ML IV PRN ×4 (00:22→23:13)
[2020-08-26] MEDS: PROPOFOL 10MG/ML 100ML 100 ML IV PRN ×3 (00:39→14:07)
[2020-08-26] MEDS: IPRATROPIUM/ALBUTEROL 0.5-3(2.5)MG/3ML NEB HHN SCH ×6 (01:08→20:20)
[2020-08-26] MEDS: SODIUM CHLORIDE 0.45% 1,000 ML IV SCH (03:51)
[2020-08-26] MEDS: POLYVINYL ALCOHOL OPHTH DROPS 15ML RIGHTEYE SCH ×5 (03:52→20:00)
[2020-08-26] MEDS: FENTANYL CITRATE/PF 2,500 MCG in SODIUM CHLORIDE 0.9% 200 ML IV PRN ×3 (04:47→23:14)
[2020-08-26] MEDS: INSULIN LISPRO 100 UNITS/ML SUBCUT SCH ×6 (06:00→17:25)
[2020-08-26] MEDS: PHENYLEPHRINE 100 MG in DEXT 5% WATER 240 ML IV PRN (06:10)
[2020-08-26] MEDS: BLOOD SUGAR DIAGNOSTIC STRIP TEST SCH ×3 (06:28→18:00)
[2020-08-26] MEDS: DILTIAZEM HCL 30MG TABLET PO SCH ×3 (06:28→17:08)
[2020-08-26] MEDS: METOCLOPRAMIDE HCL 10MG/2ML VIAL IV SCH ×3 (06:28→17:08)
[2020-08-26] MEDS: GABAPENTIN SOLN 300MG/6ML UDC GT SCH ×3 (06:28→22:09)
[2020-08-26 08:42] LABS: HEMOGLOBIN. 11.4 g/dL (14.0-18.0); MEAN CORPUSCULAR VOLUME 91.2 fL (80.0-94.0); MEAN PLATELET VOLUME 9.7 fl (7.4-10.4); PLATELET 247 x1000/uL (130-400); RED BLOOD CELL COUNT 3.95 mill/uL (4.7-6.1); RED CELL DISTRIBUTION WIDTH 14.7 % (11.6-14.6)
[2020-08-26] MEDS: ACETAMINOPHEN 650MG/20.3ML UDC PO PRN (08:59)
[2020-08-26] MEDS: ASCORBIC ACID 500 MG TABLET PO SCH ×2 (09:55→22:09)
[2020-08-26] MEDS: ENOXAPARIN 40MG/0.4ML SYR SUBCUT SCH ×2 (09:56→22:09)
[2020-08-26] MEDS: ASPIRIN 325MG TABLET GT SCH (09:56)
[2020-08-26] MEDS: ZINC SULFATE 220 MG ( 50 ) CAPSULE PO SCH (09:56)
[2020-08-26] MEDS: FAMOTIDINE 20MG TABLET PO SCH ×2 (09:56→22:10)
[2020-08-26] MEDS: DEXAMETHASONE 10 MG/ML VIAL IV SCH (09:56)
[2020-08-26] MEDS: TIMOLOL MALEATE 0.5% OPHTH DROPS 5ML RIGHTEYE SCH (09:57)
[2020-08-26] MEDS: BRIMONIDINE 0.2% OPHTH DROPS 5ML RIGHTEYE SCH ×2 (09:57→17:07)
[2020-08-26] MEDS: INSULIN GLARGINE UD 100 UNITS/ML SYR SUBCUT SCH ×2 (10:00→22:10)
[2020-08-26 10:17] LABS: BG BASE EXCESS 2.3 mmol/L (-2.0-2.0); BG CARBOXYHEMOGLOBIN 0.6 % (0.5-1.5); BG DEOXYHEMOGLOBIN 4.6 % (0.0-5.0); BG FRACTION INSPIRED OXYGEN 100; BG HCO3 ACT 29.7 mmol/L (22.0-26.0); BG METHEMOGLOBIN 0.3 % (0.0-1.5); BG OXYGEN SATURATION 95.4 % (92.0-98.5); BG OXYHEMOGLOBIN 94.5 % (94.0-97.0); BG PCO2 58.9 mmHg (35.0-45.0); BG PO2 79.9 mmHg (75.0-100.0); BG SAMPLE SITE RIGHT RADIAL; BG TOTAL HEMOGLOBIN 12.4 g/dL (12.0-18.0); BG TOTAL RESPIRATORY RATE 34 b/min; BG VENT MODE PRVC
[2020-08-26 10:49] LABS: CHLORIDE 107 mEq/L (98-107)
[2020-08-26 15:09] LABS: PLATELET ESTIMATE NORMAL
[2020-08-26] MEDS ORDERED: PHENYLEPHRINE 100 MG in DEXT 5% WATER 240 ML IV PRN (18:00)
[2020-08-26] MEDS: LATANOPROST 0.005% OPHTH DROPS 2.5ML RIGHTEYE SCH (22:10)
[2020-08-27] VITALS (95 sets, daily range): BP systolic 102–147; BP diastolic 59–77
[2020-08-27] MEDS: BLOOD SUGAR DIAGNOSTIC STRIP TEST SCH ×4 (00:38→18:00)
[2020-08-27] MEDS: METOCLOPRAMIDE HCL 10MG/2ML VIAL IV SCH ×4 (00:47→19:04)
[2020-08-27] MEDS: DILTIAZEM HCL 30MG TABLET PO SCH ×4 (00:48→19:04)
[2020-08-27] MEDS: INSULIN LISPRO 100 UNITS/ML SUBCUT SCH ×7 (00:49→18:00)
[2020-08-27] MEDS: POLYVINYL ALCOHOL OPHTH DROPS 15ML RIGHTEYE SCH ×6 (00:50→22:32)
[2020-08-27] MEDS: IPRATROPIUM/ALBUTEROL 0.5-3(2.5)MG/3ML NEB HHN SCH ×7 (00:50→20:27)
[2020-08-27] MEDS: PROPOFOL 10MG/ML 100ML 100 ML IV PRN (02:56)
[2020-08-27 05:15] LABS: HEMATOCRIT. 30.4 % (42.0-52.0); HEMOGLOBIN. 9.7 g/dL (14.0-18.0); MEAN CORPUSCULAR HEMOGLOBIN 28.9 pg (28.0-32.0); MEAN PLATELET VOLUME 9.6 fl (7.4-10.4); PLATELET 204 x1000/uL (130-400); RED BLOOD CELL COUNT 3.33 mill/uL (4.7-6.1); RED CELL DISTRIBUTION WIDTH 15.3 % (11.6-14.6)
[2020-08-27 05:24] LABS: CHLORIDE 103 mEq/L (98-107)
[2020-08-27 05:32] LABS: PHOSPHORUS 1.9 mg/dL (2.5-4.9)
[2020-08-27] MEDS: GABAPENTIN SOLN 300MG/6ML UDC GT SCH ×3 (06:14→22:26)
[2020-08-27 09:51] LABS: BG BASE EXCESS 2.3 mmol/L (-2.0-2.0); BG CARBOXYHEMOGLOBIN 0.1 % (0.5-1.5); BG DEOXYHEMOGLOBIN 7.2 % (0.0-5.0); BG FRACTION INSPIRED OXYGEN 100; BG HCO3 ACT 28.9 mmol/L (22.0-26.0); BG METHEMOGLOBIN 0.2 % (0.0-1.5); BG OXYGEN SATURATION 92.8 % (92.0-98.5); BG OXYHEMOGLOBIN 92.5 % (94.0-97.0); BG PCO2 54.6 mmHg (35.0-45.0); BG PH 7.342 (7.350-7.450); BG PO2 64.6 mmHg (75.0-100.0); BG SAMPLE SITE LEFT RADIAL; BG TOTAL HEMOGLOBIN 11.5 g/dL (12.0-18.0); BG TOTAL RESPIRATORY RATE 36 b/min; BG VENT MODE PRVC
[2020-08-27] MEDS: ASPIRIN 325MG TABLET GT SCH (10:56)
[2020-08-27] MEDS: ENOXAPARIN 40MG/0.4ML SYR SUBCUT SCH ×2 (10:56→22:26)
[2020-08-27] MEDS: ZINC SULFATE 220 MG ( 50 ) CAPSULE PO SCH (10:57)
[2020-08-27] MEDS: ASCORBIC ACID 500 MG TABLET PO SCH ×2 (10:57→21:00)
[2020-08-27] MEDS: FAMOTIDINE 20MG TABLET PO SCH ×2 (10:57→22:26)
[2020-08-27] MEDS: INSULIN GLARGINE UD 100 UNITS/ML SYR SUBCUT SCH ×2 (10:58→22:27)
[2020-08-27] MEDS: TIMOLOL MALEATE 0.5% OPHTH DROPS 5ML RIGHTEYE SCH (10:59)
[2020-08-27] MEDS: BRIMONIDINE 0.2% OPHTH DROPS 5ML RIGHTEYE SCH ×2 (10:59→19:06)
[2020-08-27] MEDS ORDERED: PROPOFOL 10MG/ML 100ML 100 ML IV PRN (11:00)
[2020-08-27] MEDS: MIDAZOLAM HCL 100 MG in DEXT 5% WATER 80 ML IV PRN (11:08)
[2020-08-27 11:12] LABS: PLATELET ESTIMATE NORMAL
[2020-08-27] MEDS: POLYETHYLENE GLYCOL 3350 (17GM) 1 DOSE PACK PO SCH (15:03)
[2020-08-27] MEDS: MIDAZOLAM HCL 100 MG in SODIUM CHLORIDE 0.9% 80 ML IV PRN ×2 (15:05→19:09)
[2020-08-27] MEDS ORDERED: SODIUM PHOS,M-BASIC-D-BASIC 15 MM in SODIUM CHLORIDE 0.9% 245 ML IV ONE (16:00)
[2020-08-27] MEDS: FENTANYL CITRATE/PF 2,500 MCG in SODIUM CHLORIDE 0.9% 200 ML IV PRN (19:08)
[2020-08-27] MEDS: PHENYLEPHRINE 100 MG in SODIUM CHLORIDE 0.9% 240 ML IV PRN (19:09)
[2020-08-27] MEDS: LATANOPROST 0.005% OPHTH DROPS 2.5ML RIGHTEYE SCH (21:00)
[2020-08-28] VITALS (95 sets, daily range): BP systolic 97–149; BP diastolic 43–90
[2020-08-28] MEDS: DEXTROSE 50% WATER 50ML SYRINGE IV PRN ×4 (00:41→22:52)
[2020-08-28] MEDS: METOCLOPRAMIDE HCL 10MG/2ML VIAL IV SCH ×5 (01:25→23:15)
[2020-08-28] MEDS: IPRATROPIUM/ALBUTEROL 0.5-3(2.5)MG/3ML NEB HHN SCH ×4 (03:34→13:55)
[2020-08-28] MEDS: POLYVINYL ALCOHOL OPHTH DROPS 15ML RIGHTEYE SCH ×7 (04:00→23:25)
[2020-08-28] MEDS: INSULIN LISPRO 100 UNITS/ML SUBCUT SCH ×8 (06:00→23:15)
[2020-08-28] MEDS: BLOOD SUGAR DIAGNOSTIC STRIP TEST SCH ×5 (06:07→23:15)
[2020-08-28] MEDS: MIDAZOLAM HCL 100 MG in SODIUM CHLORIDE 0.9% 80 ML IV PRN (06:12)
[2020-08-28 06:15] LABS: HEMOGLOBIN. 10.5 g/dL (14.0-18.0); MEAN CORPUSCULAR HEMOGLOBIN 28.9 pg (28.0-32.0); MEAN PLATELET VOLUME 9.5 fl (7.4-10.4); PLATELET 251 x1000/uL (130-400); RED BLOOD CELL COUNT 3.63 mill/uL (4.7-6.1); RED CELL DISTRIBUTION WIDTH 15.2 % (11.6-14.6)
[2020-08-28 06:19] LABS: CHLORIDE 106 mEq/L (98-107)
[2020-08-28 06:28] LABS: PHOSPHORUS 3.1 mg/dL (2.5-4.9)
[2020-08-28] MEDS: DILTIAZEM HCL 30MG TABLET PO SCH ×5 (06:37→23:12)
[2020-08-28] MEDS: GABAPENTIN SOLN 300MG/6ML UDC GT SCH ×3 (06:38→21:26)
[2020-08-28] MEDS: INSULIN GLARGINE UD 100 UNITS/ML SYR SUBCUT SCH ×2 (10:00→22:00)
[2020-08-28] MEDS: ACETAMINOPHEN 325MG TABLET PO PRN (11:39)
[2020-08-28] MEDS: FAMOTIDINE 20MG TABLET PO SCH ×2 (11:39→21:25)
[2020-08-28] MEDS: ZINC SULFATE 220 MG ( 50 ) CAPSULE PO SCH (11:39)
[2020-08-28] MEDS: POLYETHYLENE GLYCOL 3350 (17GM) 1 DOSE PACK PO SCH (11:40)
[2020-08-28] MEDS: ENOXAPARIN 40MG/0.4ML SYR SUBCUT SCH ×2 (11:51→21:29)
[2020-08-28] MEDS: TIMOLOL MALEATE 0.5% OPHTH DROPS 5ML RIGHTEYE SCH (11:51)
[2020-08-28] MEDS: ASCORBIC ACID 500 MG TABLET PO SCH ×2 (11:53→21:25)
[2020-08-28] MEDS: ASPIRIN 325MG TABLET GT SCH (11:54)
[2020-08-28] MEDS: BRIMONIDINE 0.2% OPHTH DROPS 5ML RIGHTEYE SCH ×2 (11:54→17:14)
[2020-08-28 12:31] LABS: BG BASE EXCESS 3.5 mmol/L (-2.0-2.0); BG CARBOXYHEMOGLOBIN 0.7 % (0.5-1.5); BG DEOXYHEMOGLOBIN 8.6 % (0.0-5.0); BG FRACTION INSPIRED OXYGEN 100; BG HCO3 ACT 31.8 mmol/L (22.0-26.0); BG METHEMOGLOBIN 0.3 % (0.0-1.5); BG OXYGEN SATURATION 91.3 % (92.0-98.5); BG OXYHEMOGLOBIN 90.4 % (94.0-97.0); BG PCO2 68.5 mmHg (35.0-45.0); BG PH 7.285 (7.350-7.450); BG PO2 60.6 mmHg (75.0-100.0); BG SAMPLE SITE LEFT RADIAL; BG TOTAL RESPIRATORY RATE 36 b/min; BG VENT MODE VENT- PRVC
[2020-08-28] MEDS: FENTANYL CITRATE/PF 2,500 MCG in SODIUM CHLORIDE 0.9% 200 ML IV PRN ×2 (12:38→21:16)
[2020-08-28 14:24] LABS: PLATELET ESTIMATE NORMAL
[2020-08-28] MEDS ORDERED: MIDAZOLAM HCL 100 MG in DEXT 5% WATER 80 ML IV PRN (16:00)
[2020-08-28] MEDS: MIDAZOLAM HCL 100 MG in DEXT 5% WATER 80 ML IV PRN (20:18)
[2020-08-28] MEDS: PHENYLEPHRINE 100 MG in SODIUM CHLORIDE 0.9% 240 ML IV PRN (21:22)
[2020-08-28] MEDS: LATANOPROST 0.005% OPHTH DROPS 2.5ML RIGHTEYE SCH (21:31)
[2020-08-29] VITALS (97 sets, daily range): BP systolic 58–137; BP diastolic 30–89
[2020-08-29] MEDS: ACETAMINOPHEN 325MG TABLET PO PRN ×3 (02:04→11:31)
[2020-08-29] MEDS: IPRATROPIUM/ALBUTEROL 0.5-3(2.5)MG/3ML NEB HHN SCH ×4 (03:32→20:46)
[2020-08-29] MEDS: POLYVINYL ALCOHOL OPHTH DROPS 15ML RIGHTEYE SCH ×6 (04:46→23:32)
[2020-08-29] MEDS: GABAPENTIN SOLN 300MG/6ML UDC GT SCH ×3 (05:01→22:02)
[2020-08-29] MEDS: METOCLOPRAMIDE HCL 10MG/2ML VIAL IV SCH ×4 (05:01→23:31)
[2020-08-29] MEDS: DILTIAZEM HCL 30MG TABLET PO SCH ×4 (05:02→23:32)
[2020-08-29] MEDS: INSULIN LISPRO 100 UNITS/ML SUBCUT SCH ×7 (05:51→23:32)
[2020-08-29] MEDS: BLOOD SUGAR DIAGNOSTIC STRIP TEST SCH ×4 (05:51→23:32)
[2020-08-29] MEDS: MIDAZOLAM HCL 100 MG in DEXT 5% WATER 80 ML IV PRN ×2 (05:52→21:34)
[2020-08-29 06:05] LABS: HEMATOCRIT. 34.6 % (42.0-52.0); HEMOGLOBIN. 10.9 g/dL (14.0-18.0); MEAN CORPUSCULAR HEMOGLOBIN 28.8 pg (28.0-32.0); MEAN CORPUSCULAR VOLUME 91.2 fL (80.0-94.0); MEAN PLATELET VOLUME 8.8 fl (7.4-10.4); PLATELET 291 x1000/uL (130-400); RED CELL DISTRIBUTION WIDTH 15.8 % (11.6-14.6)
[2020-08-29 06:11] LABS: CHLORIDE 107 mEq/L (98-107)
[2020-08-29] MEDS: FENTANYL CITRATE/PF 2,500 MCG in SODIUM CHLORIDE 0.9% 200 ML IV PRN ×3 (07:14→21:34)
[2020-08-29 07:56] LABS: PLATELET ESTIMATE NORMAL
[2020-08-29] MEDS: BRIMONIDINE 0.2% OPHTH DROPS 5ML RIGHTEYE SCH ×2 (09:00→17:00)
[2020-08-29] MEDS ORDERED: FUROSEMIDE 40MG/4ML VIAL IVP ONE (09:45)
[2020-08-29 09:57] LABS: BG BASE EXCESS 3.5 mmol/L (-2.0-2.0); BG CARBOXYHEMOGLOBIN 0.8 % (0.5-1.5); BG DEOXYHEMOGLOBIN 10.3 % (0.0-5.0); BG HCO3 ACT 30.8 mmol/L (22.0-26.0); BG METHEMOGLOBIN 0.3 % (0.0-1.5); BG OXYGEN SATURATION 89.6 % (92.0-98.5); BG OXYHEMOGLOBIN 88.6 % (94.0-97.0); BG PCO2 59.9 mmHg (35.0-45.0); BG PH 7.329 (7.350-7.450); BG PO2 55.5 mmHg (75.0-100.0); BG SAMPLE SITE RIGHT RADIAL; BG TOTAL HEMOGLOBIN 12.1 g/dL (12.0-18.0); BG VENT MODE VENT- PRVC
[2020-08-29] MEDS: ENOXAPARIN 40MG/0.4ML SYR SUBCUT SCH ×2 (11:31→22:02)
[2020-08-29] MEDS: POLYETHYLENE GLYCOL 3350 (17GM) 1 DOSE PACK PO SCH (11:31)
[2020-08-29] MEDS: FAMOTIDINE 20MG TABLET PO SCH ×2 (11:31→22:03)
[2020-08-29] MEDS: ASPIRIN 325MG TABLET GT SCH (11:31)
[2020-08-29] MEDS: ASCORBIC ACID 500 MG TABLET PO SCH ×2 (11:31→22:03)
[2020-08-29] MEDS: TIMOLOL MALEATE 0.5% OPHTH DROPS 5ML RIGHTEYE SCH (11:32)
[2020-08-29] MEDS: ZINC SULFATE 220 MG ( 50 ) CAPSULE PO SCH (11:33)
[2020-08-29] MEDS ORDERED: PIPERACILLIN/TAZOBACTAM 3.375 G in DEXT 5% WATER 100 ML IV SCH (14:00)
[2020-08-29] MEDS: DEXTROSE 50% WATER 50ML SYRINGE IV PRN (14:19)
[2020-08-29] MEDS: SODIUM POLYSTYRENE SULFONATE 15 G/60 ML BOT PO PRN (14:19)
[2020-08-29] MEDS ORDERED: MEROPENEM 1,000 MG in SODIUM CHLORIDE 0.9% 100 ML IV SCH (15:00)
[2020-08-29] MEDS ORDERED: VANCOMYCIN 2,000 MG in SODIUM CHLORIDE 0.9% 500 ML IV SCH (15:00)
[2020-08-29] MEDS ORDERED: MICAFUNGIN 100 MG in SODIUM CHLORIDE 0.9% 100 ML IV SCH (15:30)
[2020-08-29] MEDS: MEROPENEM-0.9% SODIUM CHLORIDE 50 ML IV SCH (16:23)
[2020-08-29] MEDS: PHENYLEPHRINE 100 MG in SODIUM CHLORIDE 0.9% 240 ML IV PRN (20:09)
[2020-08-29 20:32] LABS: CLARITY URINE TURBID (CLEAR); COLOR URINE ORANGE (YELLOW); KETONES URINE NEGATIVE (NEGATIVE); LEUKOCYTE ESTERASE URINE 3+ (NEGATIVE); NITRITE URINE POSITIVE (NEGATIVE); OCCULT BLOOD URINE 2+ (NEGATIVE); PROTEIN URINE 2+ (NEGATIVE); SPECIFIC GRAVITY URINE 1.026 (1.005-1.030)
[2020-08-29] MEDS: LATANOPROST 0.005% OPHTH DROPS 2.5ML RIGHTEYE SCH (21:00)
[2020-08-29] MEDS ORDERED: NOREPINEPHRINE 8 MG in DEXTROSE 5% WATER 250 ML IV PRN (21:15)
[2020-08-29] MEDS ORDERED: INSULIN GLARGINE UD 100 UNITS/ML SYR SUBCUT SCH (22:00)
[2020-08-29] MEDS: ACETAMINOPHEN 650MG/20.3ML UDC PO PRN (22:02)
[2020-08-29] MEDS ORDERED: VANCOMYCIN 1,250 MG in SODIUM CHLORIDE 0.9% 250 ML IV SCH (23:00)
[2020-08-30] VITALS (18 sets, daily range): BP systolic 47–124; BP diastolic 34–89
[2020-08-30] MEDS: IPRATROPIUM/ALBUTEROL 0.5-3(2.5)MG/3ML NEB HHN SCH
[2020-08-30] MEDS: PHENYLEPHRINE 100 MG in SODIUM CHLORIDE 0.9% 240 ML IV PRN (00:47)
[2020-08-30] MEDS: ACETAMINOPHEN 650MG/20.3ML UDC PO PRN (01:07)
[2020-08-30] MEDS: MEROPENEM-0.9% SODIUM CHLORIDE 50 ML IV SCH (01:07)
[2020-08-30] MEDS ORDERED: VASOPRESSIN 20 UNIT in SODIUM CHLORIDE 0.9% 99 ML IV PRN (03:00)
[2020-08-30 06:09] LABS: CHLORIDE 107 mEq/L (98-107)
[2020-08-30 06:18] LABS: CREATINE KINASE 381 IU/L (39-308)
[2020-08-30 06:21] LABS: HEMATOCRIT. 36.7 % (42.0-52.0); HEMOGLOBIN. 11.5 g/dL (14.0-18.0); MEAN CORPUSCULAR HEMOGLOBIN 29.6 pg (28.0-32.0); MEAN CORPUSCULAR VOLUME 94.7 fL (80.0-94.0); MEAN PLATELET VOLUME 9.2 fl (7.4-10.4); PLATELET 328 x1000/uL (130-400); RED BLOOD CELL COUNT 3.88 mill/uL (4.7-6.1); RED CELL DISTRIBUTION WIDTH 16.2 % (11.6-14.6)
[2020-08-30 16:24] LABS: NUCLEATED RED BLOOD CELLS 10 /100 WBC
[2020-08-30 16:25] LABS: PLATELET ESTIMATE NORMAL
== END 2020-08-30 05:01 | disposition expired | DRG 870 ==
LOC: ER 16:52 → MICUSO 20:08 → SUPCPDRO 20:10 → EDBEDREQSVC 20:16 → EDBEDREQTM 20:16 → EDBEDREQ 20:16 → 7EST 08-05 21:42 → MICUSO 08-10 14:10
PROVIDERS: ADMIT Internal Medicine; ATTEND Internal Medicine
PROC: 5A1955Z Respiratory Ventilation, Greater than 96 Consecutive Hours (ICD-10-PCS; principal; 2020-08-10)
PROC: 0BH18EZ Insertion of Endotracheal Airway into Trachea, Via Natural or Artificial Opening Endoscopic (ICD-10-PCS; 2020-08-10)
PROC: 05HY33Z Insertion of Infusion Device into Upper Vein, Percutaneous Approach (ICD-10-PCS; 2020-08-10)
PROC: B54MZZA Ultrasonography of Right Upper Extremity Veins, Guidance (ICD-10-PCS; 2020-08-10)
DX: A41.89 Other specified sepsis (principal); U07.1 COVID-19; E43 Unspecified severe protein-calorie malnutrition; J12.82 Pneumonia due to coronavirus disease 2019; J96.01 Acute respiratory failure with hypoxia; M62.82 Rhabdomyolysis; J44.0 Chronic obstructive pulmonary disease with (acute) lower respiratory infection; E87.2 Acidosis; N17.9 Acute kidney failure, unspecified; Z68.41 Body mass index [BMI] 40.0-44.9, adult; R65.20 Severe sepsis without septic shock; E11.65 Type 2 diabetes mellitus with hyperglycemia; E83.51 Hypocalcemia; I50.9 Heart failure, unspecified; I11.0 Hypertensive heart disease with heart failure; B97.89 Other viral agents as the cause of diseases classified elsewhere; E11.42 Type 2 diabetes mellitus with diabetic polyneuropathy; G47.33 Obstructive sleep apnea (adult) (pediatric); D64.9 Anemia, unspecified; E66.01 Morbid (severe) obesity due to excess calories; E87.5 Hyperkalemia; G89.29 Other chronic pain; K59.00 Constipation, unspecified; M17.10 Unilateral primary osteoarthritis, unspecified knee; T38.0X5A Adverse effect of glucocorticoids and synthetic analogues, initial encounter; Z82.49 Family history of ischemic heart disease and other diseases of the circulatory system; Z79.4 Long term (current) use of insulin; Z86.74 Personal history of sudden cardiac arrest; Z91.041 Radiographic dye allergy status; Z79.899 Other long term (current) drug therapy; Y92.89 Other specified places as the place of occurrence of the external cause; I46.9 Cardiac arrest, cause unspecified; E16.2 Hypoglycemia, unspecified
CPT/HCPCS: 36415; 36600; 71045; 76770; 76937; 80048; 80053; 80061; 80305; 81003; 82043; 82375; 82550; 82553; 82570; 82728; 82805; 82962; 83036; 83605; 83615; 83735; 83880; 83935; 84100; 84132; 84145; 84295; 84300; 84443; 84478; 84484; 85025; 85379; 85384; 86140; 87070; 87077; 87106; 87186; 87635; 93005; 93970; 94003; 94640; 96374; 99291; A6261; C1725; J0456; J0696; J1100; J1650; J1815; J1940; J2185; J2248; J2250; J2370; J2543; J2704; J2765; J3010; J3370; J3490; J7030; J7040; J7050; J7060; J7070; J8597; A4315